=== PATIENT | male | born 1955 | race Caucasian/White ===

== ENCOUNTER 2024-08-21 10:57 | Outpatient (CLI) | payer MEDICARE, SELFPAY ==
--- NOTE | ~2024-08-21 | XR_ITS ---
XR abdomen/kub 1V 08/21/2024 11:24 Indication: Kidney stone Procedure: KUB Comparison: No prior studies for comparison. Findings: Bowel gas pattern is nonobstructive. There is a total hip arthroplasty on the left. Mild kayli mbar spondylosis. Moderate colonic fecal loading. There are pelvic phleboliths. No definite renal sto milagros are seen. Lung bases are unremarkable. Impression: 1: No acute abdominal abnormality. Reviewed, dictated and finalized at location A. Impression: 1: No acute abdominal abnormality.
--- NOTE | ~2024-08-21 | CT_ITS ---
CLINICAL INDICATION: Left ureteral stone COMPARISON: Plain film evaluation of the abdomen, performed on the same day TECHNIQUE: Multiple contiguous axial images of the abdomen and pelvis were performed without the admi nistration of intravenous contrast The dose-length product (DLP) was 951.03 mGy-cm. Automated exposure control and iterative reconstruction technique were employed. FINDINGS/OBSERVATIONS: Visualized lower thorax: The bilateral lung bases are clear. The heart is of normal size, without pericardial effusion. Liver: The liver demonstrates homogeneous attenuation and is not enlarged. Gallbladder and biliary system: The gallbladder is only minimally distended, and otherwise unremarkable. Pancreas: Limited evaluation of the pancreas secondary to the lack of intravenous contrast. Spleen: The spleen demonstrates homogeneous attenuation and is not enlarged. Kidneys: Global enlargement of the left kidney with moderate hydroureteronephrosis secondary to multiple calcu li in the proximal left ureter, the largest measuring 7 mm. Punctate calcification within the lower pole of the left kidney, nonobstructing. The right kidney is unremarkable. Adrenal glands: Unremarkable. Gastrointestinal tract: Colonic diverticulosis without surrounding inflammatory change. Appendix: The appendix is not definitively visualized. However, no pericecal inflammatory change is identified suggest the presence of acute appendicitis. Vasculature: Calcified atherosclerotic disease. Lymph nodes: Limited evaluation without intravenous contrast Pelvic structures: The bladder is decompressed, limiting its evaluation. The prostate gland is not well visualized. Body wall and musculoskeletal: Small fat-containing umbilical hernia. Age-appropriate degenerative disease within the lumbosacral spine. IMPRESSION: Moderate left-sided hydroureteronephrosis secondary to multiple calcified stones within the proximal left ureter, the largest measuring 7 mm Reviewed, dictated and finalized at location A. IMPRESSION: Moderate left-sided hydroureteronephrosis secondary to multiple calcified stone s within the proximal left ureter, the largest measuring 7 mm
--- OUTSIDE RECORDS SUMMARY | 2024-08-21 12:08 | XMS_ITS | Encounter Summary ---
Author Organization [facility] Address [address] [place] [address] Phone Care Team Providers Care Rate Marker Name Role Phone Mamie Galeano MD Primary Care Provider [phone] Encounter Details Date Type Department Care Team (Late st Contact Info) Description 07/26/2024 Results Follow-Up [facility] Endocrinology Metabolism and Lipid [address] [facility] 2nd [address] [place] [address] DO [address] [facility] [address] [place], [place] [id number] Social History Tobacco Use Types Packs/Day Years Used Date Smoking Tobacco: Never Passive Smoke Exposure: Never Smokeless Tobacco: Never Alcohol Use Standard Drinks/Week Comments Yes 0 (1 standard drink = 0.6 oz pur e alcohol) AUDIT-C Answer Date Recorded Q1: How often do you have a drink containing alc ohol? 2-4 times a month 08/05/2021 Q2: How many drinks containi ng alcohol do you have on a typical day when you are drinking? 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
--- OUTSIDE RECORDS SUMMARY | 2024-08-21 12:08 | XMS_ITS | Encounter Summary ---
Author Organization [facility] Address [address] [place] [address] Care Team Providers Care Hammer Operator Name Role Phone Mamie Galeano MD Primary Care Provider [phone] Buffy Menon APRN, SPEECH LANGUAGE PATHOLOGIST PRN-C Unavailable [phone] Encounter Details Date Type Department Care Team (Late st Contact Info) Description 09/28/2018 Abstract [facility]FL CONVERSION [address] [place] [address] , Generic Conversion, Social History Tobacco Use Types Packs/Day Years Used Date Smoking Tobacco: Never Smokeless Tobacco: Never Alcohol Use Standard Drinks/Week Comments Yes 1.7 (1 standard drink = 0.6 oz [address] alcohol) occasionally Sex and Gender Information Value Date Recorded Sex Assigned at Male 08/16/2024 6:37 PM CDT 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
--- OUTSIDE RECORDS SUMMARY | 2024-08-21 12:08 | XMS_ITS | Clinical Summary ---
Author Organization [facility] Address [address] [place] [address] Care Team Providers Care Supervisor Volunteer Services Name Role Phone Mamie Galeano MD Primary Care Provider [phone] Buffy Menon APRN [employer] Unavailable Allergies Active Allergy Reactions Criticality Noted Date Comments Penicillins Rash Low 05/31/2017 Medications metoprolol succinate 50 MG 24 hr tablet Take 2 tablets (100 mg total) by mouth daily. Active metFORMIN 1000 MG tablet Take 1,000 mg by mouth 2 (two) times daily with meals. Active multivitamin tablet Take 1 tablet by mouth daily. Active Fish Oil 1000 MG Cap Active amlodipine 10 MG tablet Take 1 tablet by mouth daily. 0 8 Active lisinopril 20 MG tablet Take 2 tablets (40 mg total) by mouth daily. 0 8 Active rosuvastatin 20 MG tablet Take 40 mg by mouth daily. 3 8 Active aspirin 81 MG chewable tablet Chew 1 tablet (81 mg total) by mouth daily. 90 tablet 3 8 Active chlorthalidone 25 MG tablet Take 1 tablet (25 mg total) by mouth daily. 30 tablet 11 8 Active fenofibric acid delayed release (TRILIPIX) 135 MG CAPSULE DELAYED RELEASE Take 1 tablet (135 mg total) by mouth daily. Active hydroCHLOROthiazide (HYDRODIURIL) 25 MG tablet Take 1 tablet (25 mg total) by mouth daily. 5 08/05/19 26 Active semaglutide (OZEMPIC) 2 mg/dose injection (PEN) Inject 2 mg into the skin. 5 Active magnesium oxide (MAG-OX) 250 MG tablet Take 1 tablet (250 mg total) by mouth daily. Active vitamin B-12 (CYANOCOBALAMIN) (CYANOCOBALAMIN) 1000 mcg tablet Take 1 tablet (1,000 mcg total) by mouth daily. Active Calcium-Phosphorus- Vitamin D (CITRACAL +D3) 250-107-500 MG-MG-UNIT Chew Tab Active aspirin 81 MG chewable tablet Chew 1 tablet (81 mg total) by mouth daily. Active ezetimibe (ZETIA) 10 MG tablet Take 1 tablet (10 mg total) by mouth daily. Active ondansetron (ZOFRAN) 4 MG tabletIndications:H yperlipidemia, unspecified hyperlipidemia type,Primary hypertension Take 1 tablet (4 mg total) by mouth every 8 (eight) hours as needed for Nausea. 20 tablet 5 Active tamsulosin (FLOMAX) 0.4 MG Cap Take 1 capsule (0.4 mg total) by mouth daily. 30 capsule 5 Active ketorolac (TORADOL) 10 MG tabletIndications:H yperlipidemia, unspecified hyperlipidemia type,Primary hypertension Take 1 tablet (10 mg total) by mouth 3 (three) times daily for 3 days. 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 ([facility]) 10/05/2017 Hyperlipidemia Hypertension Type II diabetes mellitus ([facility]) Encounters Date Type Department Care Team Description 08/16/2024 6:26 PM CDT - 08/16/2024 9:02 PM CDT [facility] [address] [place] [address] Tony Cook, DO Back Pain Discharge Disposition: Home or Self Care (Routine Discharge) 08/16/2024 Travel from Last 3 Months Family History Medical History Relation Comments Heart Disease Father Kidney Disease Father Cancer Mother Relation Status Comments Brother 1 Alive Brother 2 Alive Brother 3 Alive Father Mother Sister Alive Social History Tobacco Use Types Packs/Day Years Used Date Smoking Tobacco: Never Smokeless Tobacco: Never Alcohol Use Standard Drinks/Week Comments Yes 1.7 (1 standard drink = 0.6 oz p ure alcohol) occasionally Sex and Gender Information Value Date Recorded Sex Assigned at Male 08/16/2024 6:37 PM CDT 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 Gender Identity Not on file Sexual Orientation Not on file Last Filed Vital Signs Vital Sign Reading Time Taken Comments Blood Pressure 144/79 08/16/2024 6:32 PM CDT Pulse 81 08/16/2024 6:32 PM CDT Temperature 36.4 C (97.5 F) 08/16/2024 6:32 PM CDT Respiratory Rate 20 08/16/2024 6:32 PM CDT Oxygen Saturation 91% 08/16/2024 8:30 PM CDT Inhaled Oxygen Concentration - - Weight 115.2 kg (254 lb) 08/16/2024 6:32 PM CDT Height 182.9 cm (6') 08/16/2024 6:32 PM CDT Body Mass Index 34.45 08/16/2024 6:32 PM CDT Plan of Treatment Health Maintenance Due Date Last Done Comments Colorectal Cancer Screening Colonoscopy (10 Years) 1955 Kidney Health Evaluation 1955 Diabetes: Retinopathy Eye Exam 11/18/1973 Hepatitis C 11/18/1973 Pneumococcal Vaccine: 50+ Years (1 of 2 - PCV) 11/18/1974 DTaP, Tdap and Td Vaccines (1 - Tdap) 09/10/1992 09/09/1992 Zoster Vaccines (1 of 2) 11/18/2005 Lipid Panel 05/15/2018 05/15/2017 Annual Medicare Wellness Visit 11/18/2020 COVID-19 Vaccine ( season) 2023 02/23/2021, 08/09/2020, 06/30/2020 Hemoglobin A1C 04/05/2024 10/05/2023, 09/22, 10/06/2017, Additional history exists RSV Immunization or 60+ Years (1 - 1-dose 75+ series) 11/18/2030 Meningococcal B Vaccine Aged Out No l onger eligible based on patient's age to complete this topic Meningococcal Vaccine Aged Out No rosie cosme eligible based on patient's age to complete this topic RSV Immunizations Under 20 Months Aged Out No longer eligible based on patient's age to complete this topic Procedures Procedure Name Priority Date/Time Associated Diagnosis Comments CT ABD+PEL KIDNEY STONE STAT 08/16/2024 7:40 PM CDT HC URINALYSIS AUTO W/MICRO STAT 08/16/2024 7:25 PM CDT COMPREHENSIVE METABOLIC PANEL STAT 08/16/2024 7:14 PM CDT CBC W/DIFF AUTOMATED STAT 08/16/2024 7:14 PM CDT HEMOGLOBIN, GLYCOSYLATED Routine 10/06/2017 7:29 AM CDT LIPID PANEL (OUTSIDE LAB) Routine 05/15/2017 from Last 3 Months or Most Recently Relevant to Health Maintenance Results * CT ABD+PEL KIDNEY STONE (08/16/2024 7:40 PM CDT) Anatomical Region Laterality Modality Abdomen Computed Tomogra phy 08/16/2024 7:48 PM CDT Impressions 08/16/2024 8:37 PM CDT IMPRESSION: 1. There is a 6 mm obstructing stone within the proximal left ureter just beyond the UPJ with mild associated left hydronephrosis. 2. Additional nonobstructing left renal calculi, the largest measuring up to 6 mm. The attending radiologist has reviewed the image(s) and agrees with the content of this report. Ordered By: KADE HOLLOWAY Interpreted By: Jacqueline Fierro DO, 08/16/2024 7:48 PM Narrative 08/16/2024 8:37 PM CDT [address] [place] [address] EXAMINATION: CT ABD+PEL KIDNEY STONE DATE: 08/16/2024 7:40 PM HISTORY: Left flank pain and vomiting COMPARISON: None TECHNIQUE: Computed tomography of the abdomen and pelvis was performed without administration of IV contrast according to routine protocol. A dose lowering technique was used for this procedure, which may include, but is not limited to, dose reduction technique, automated exposure control, and/or the use of iterative reconstruction, in accordance with ALARA (As Low As Reasonably Achievable)/Image Gently principle. FINDINGS: Chest: Bibasilar dependent atelectasis. Atherosclerotic calcifications within the visualized coronary vessels. Old granulomatous disease. Hepatobiliary system: The liver is normal in size and contour. No biliary duct dilatation is identified. The gallbladder is unremarkable. Pancreas and adrenal glands: The pancreas is normal. The adrenal glands are normal. Genitourinary tract: Bilateral atrophy of the kidneys. There is a 6 mm obstructing calculus within the left ureter slightly distal to the UPJ with mild associated hydronephrosis. Multiple additional nonobstructive left renal calculi, the largest measuring up to 6 mm posteriorly. No right-sided renal calculi. Tiny hyperdensity along the superior right kidney as well as an exophytic hyperdensity along the left kidney likely represent proteinaceous or hemorrhagic cysts. The urinary bladder is incompletely distended. No bladder calculi are visualized. Bilateral fat-containing inguinal hernias. Gastrointestinal tract: No bowel dilatation or bowel wall thickening is identified. The appendix is normal. No ascites or free intraperitoneal air is present. Small fat-containing umbilical hernia. Vasculature: The abdominal aorta is normal in course and caliber. There are atherosclerotic calcifications of the aorta and its branches. Lymphatics: The spleen is normal in size, with small splenules visualized. Granulomatous calcifications in the spleen. No retroperitoneal, mesenteric, iliac, or inguinal lymphadenopathy is identified. Bones and soft tissues: Degenerative changes within the thoracolumbar spine which may contribute to the degree of canal stenosis within the lower lumbar spine. Left hip arthroplasty. Streak artifact from a left hip arthroplasty degrades visualization of portions of the pelvis. Lumbarization of S1 with formation of an intervertebral disc. Mild retrolisthesis of L2 on L3. Severe neural foraminal narrowing at L5-S1 bilaterally but greatest on the left. Procedure Note Amita Lane MD - 08/16/2024 [place] [id number] [place] [address] EXAMINATION: CT ABD+PEL KIDNEY STONE DATE: 08/16/2024 7:40 PM HISTORY: Left flank pain and vomiting COMPARISON: None TECHNIQUE: Computed tomography of the abdomen and pelvis was performed withoutadministration of IV contrast according to routine protocol. A doselowering technique was used for this procedure, which may include, but isnot limited to, dose reduction technique, automated exposure control,and/or the use of iterative reconstruction, in accordance with ALARA (AsLow As Reasonably Achievable)/Image Gently principle. FINDINGS: Chest: Bibasilar dependent atelectasis. Atherosclerotic calcificationswithin the visualized coronary vessels. Old granulomatous disease. Hepatobiliary system: The liver is normal in size and contour. Nobiliary duct dilatation is identified. The gallbladder isunremarkable. Pancreas and adrenal glands: The pancreas is normal. The adrenal glandsare normal. Genitourinary tract: Bilateral atrophy of the kidneys. There is a 6 mmobstructing calculus within the left ureter slightly distal to the UPJwith mild associated hydronephrosis. Multiple additional nonobstructiveleft renal calculi, the largest measuring up to 6 mm posteriorly. Noright-sided renal calculi. Tiny hyperdensity along the superior rightkidney as well as an exophytic hyperdensity along the left kidney likelyrepresent proteinaceous or hemorrhagic cysts. The urinary bladder isincompletely distended. No bladder calculi are visualized. Bilateralfat- containing inguinal hernias. Gastrointestinal tract: No bowel dilatation or bowel wall thickening isidentified. The appendix is normal. No ascites or free intraperitonealair is present. Small fat-containing umbilical hernia. Vasculature: The abdominal aorta is normal in course and caliber. Thereare atherosclerotic calcifications of the aorta and its branches. Lymphatics: The spleen is normal in size, with small splenulesvisualized. Granulomatous calcifications in the spleen. Noretroperitoneal, mesenteric, iliac, or inguinal lymphadenopathy isidentified. Bones and soft tissues: Degenerative changes within the thoracolumbarspine which may contribute to the degree of canal stenosis within thelower lumbar spine. Left hip arthroplasty. Streak artifact from a lefthip arthroplasty degrades visualization of portions of the pelvis.Lumbarization of S1 with formation of an intervertebral disc. Mildretrolisthesis of L2 on L3. Severe neural foraminal narrowing at L5- X5lepnzbqclko but greatest on the left. IMPRESSION: 1. There is a 6 mm obstructing stone within the proximal left ureter justbeyond the UPJ with mild associated left hydronephrosis. 2. Additional nonobstructing left renal calculi, the largest measuring upto 6 mm. The attending radiologist has reviewed the image(s) and agrees with thecontent of this report. Ordered By: KADE HOLLOWAY Interpreted By: Jacqueline Fierro DO, 08/16/2024 7:48 PM Kade Holloway MD CT Final Result * (ABNORMAL) URINALYSIS (08/16/2024 7:25 PM CDT) COLOR (U) YELLOW 08/16/2024 7:46 PM CDT [facility] TRANSPARENCY CLEAR 08/16/2024 7:46 PM CDT [facility] SPECIFIC GRAVITY (U) 1.030(H) 1.000 - 1.025 08/16/2024 7:46 PM CDT [facility] Comment:EQUAL TO OR GREATER THAN U PH 6.0 5.0 - 8.0 08/16/2024 7:46 PM CDT [facility] LEUKOCYTES (U) NEGATIVE NEGATIVE 08/16/2024 7:46 PM CDT [facility] NITRITES NEGATIVE NEGATIVE 08/16/2024 7:46 PM CDT [facility] PROTEIN RANDOM (U) NEGATIVE NEGATIVE 08/16/2024 7:46 PM CDT [facility] GLUCOSE (U) NEGATIVE NEGATIVE 08/16/2024 7:46 PM CDT [facility] KETONES MG/DL (U) NEGATIVE NEGATIVE 08/16/2024 7:46 PM CDT [facility] UROBILINOGEN 0.2 <1.0 EU/DL 08/16/2024 7:46 PM CDT [facility] BILIRUBIN (U) NEGATIVE NEGATIVE 08/16/2024 7:46 PM CDT [facility] BLOOD (U) TRACE(A) NEGATIVE 08/16/2024 7:46 PM CDT [facility] WBC/HPF 0-5 0 - 5 /HPF 08/16/2024 7:46 PM CDT [facility] RBC/HPF 0-5 0 - 5 /HPF 08/16/2024 7:46 PM CDT [facility] EPI/LPF 0-5 /LPF 08/16/2024 7:46 PM CDT [facility] BACTERIA (U) 2+ /HPF 08/16/2024 7:46 PM CDT [facility] OTHER CASTS (U) HYALINE /LPF 7:46 PM CDT [facility] Comment:0-5 URINE SPECIMEN OBTAINED BY CLEAN CATCH PROCEDURE / Unknown 08/16/2024 7:25 PM CDT us Tony Cook DO URINE ORDERABLES Latanya jennifer Result [facility] [address] [place] [address], * (ABNORMAL) COMPREHENSIVE METABOLIC PANEL (08/16/2024 7:14 PM CDT) SODIUM S/P/B 138 136 - 145 MMOL/L 08/16/2024 7:48 PM CDT [facility] POTASSIUM S/P/B 3.5 3.5 - 5.1 MMOL/L 08/16/2024 7:48 PM CDT [facility] Comment:MILD HEMOLYSIS, RESU LT MAY BE AFFECTED. CHLORIDE S/P/B 99 98 - 107 MMOL/L 08/16/2024 7:48 PM CDT [facility] CO2 28.6 21.0 - 32.0 MMOL/L 08/16/2024 7:48 PM CDT [facility] GLUCOSE 139(H) 70 - 99 MG/DL 08/16/2024 7:48 PM CDT [facility] Comment: FASTING GLUCOSE 100 TO 125 MG/DL IS CONSISTENT WITH IMPAIRED FASTING GLUCOSE. FASTING GLUCOSE >125 MG/DL IS CONSISTENT WITH DIABETES. RANDOM GLUCOSE >200 MG/DL WITH HYPERGLYCEMIC SYMPTOMS IS CONSISTENT WITH DIABETES. PER ADA GUIDELINES BUN 19 6 - 24 MG/DL 08/16/2024 7:48 PM CDT [facility] CREATININE S/P/B 1.36(H) 0.70 - 1.30 MG/DL 08/16/2024 7:48 PM CDT [facility] CALCIUM S/P/B 9.7 8.4 - 10.5 MG/DL 08/16/2024 7:48 PM CDT [facility] BILIRUBIN TOTAL S/P/B 0.8 0.2 - 1.0 MG/DL 08/16/2024 7:48 PM CDT [facility] Comment: THIS ASSAY IS NOT RECOMMENDED FOR PATIENTS UNDERGOING TREATMENT WITH ELTROMBOPAG DUE TO THE POTENTIAL FOR FALSELY ELEVATED RESULTS. ALKALINE PHOSPHATASE S/P/B 44(L) 45 - 115 U/L 08/16/2024 7:48 PM T [facility] AST 38(H) 15 - 37 U/L 08/16/2024 7:48 PM CDT [facility] Comment:MILD HEMOLYSIS, RESU LT MAY BE AFFECTED. ALT 31 16 - 63 U/L 08/16/2024 7:48 PM CDT [facility] TOTAL PROTEIN S/P/B 7.8 6.4 - 8.2 G/DL 08/16/2024 7:48 PM T [facility] ALBUMIN S/P/B 3.9 3.4 - 5.0 G/DL 08/16/2024 7:48 PM T [facility] ANION GAP 10.4 5.0 - 15.0 MMOL/L 08/16/2024 7:48 PM T [facility] OSMOLALITY (CALC) 291 MOSM/KG 025 7:48 PM T [facility] Comment:REFERENCE RANGE NOT ESTABLISHED GFR ESTIMATE 57(L) >89 ML/MIN/1. 73 M2 08/16/2024 7:48 PM T [facility] GFR NOTES GFR REFERENCE S: 08/16/2024 7:48 PM T [facility] Comment: THE ESTIMATED GFR IS CALCULATED USING THE 2020 CKD-EPI EQUATION. THE FOLLOWING CATEGORIES FOR GRADING RENAL FUNCTION ARE RECOMMENDED BY THE INTERNATIONAL SOCIETY OF NEPHROLOGY (KDIGO 2012 CLINICAL PRACTICE GUIDELINE). G1,NORMAL OR HIGH: >89 ml/min/1.73 m2 G2,MILDLY DECREASED: 60-89 ml/min/1.73 m2 G3A,MILDLY TO MODERATELY DECREASED: 45-59 ml/min/1.73 m2 G3B,MODERATELY TO SEVERELY DECREASED: 30-44 ml/min/1.73 m2 G4,SEVERELY DECREASED: 15-29 ml/min/1.73 m2 G5,KIDNEY FAILURE: <15 ml/min/1.73 m2 08/16/2024 7:14 PM CDT us Tony Cook DO LABORATORY Final Result [facility] [address] [place] [address], * (ABNORMAL) CBC W/DIFF AUTOMATED (08/16/2024 7:14 PM CDT) WBC 7.17 4.00 - 10.80 x10'3/uL 08/16/2024 7:24 PM CDT [facility] RBC 4.95 4.50 - 6.10 x10'6/uL 08/16/2024 7:24 PM CDT [facility] HGB 16.5 13.0 - 18.0 G/DL 08/16/2024 7:24 PM CDT [facility] HCT 47.1 37.0 - 52.0 % 08/16/2024 7:24 PM CDT [facility] MCV 95.2 78.0 - 100.0 FL 08/16/2024 7:24 PM CDT [facility] MCH 33.3(H) 27.0 - 31.0 PG 08/16/2024 7:24 PM CDT [facility] MCHC 35.0 33.0 - 36.0 G/DL 08/16/2024 7:24 PM CDT [facility] RDW 12.5 11.5 - 14.5 % 08/16/2024 7:24 PM CDT [facility] PLT 245 150 - 350 x10'3/uL 08/16/2024 7:24 PM CDT [facility] MPV 10.7(H) 7.4 - 10.4 FL 08/16/2024 7:24 PM CDT [facility] CBC COMMENT NORMAL REFERENCE RANGE NOT ESTABLISHED FOR THE PROPORTIONAL LEUKOCYTE DIFFERENTIAL. 08/16/2024 7:24 PM CDT [facility] NEUTROPHILS % 70.9 % 08/16/2024 7:24 PM CDT [facility] LYMPHOCYTES % 18.7 % 08/16/2024 7:24 PM CDT [facility] MONOCYTES % 8.5 % 08/16/2024 7:24 PM CDT [facility] EOSINOPHILS % 1.0 % 08/16/2024 7:24 PM CDT [facility] BASOPHILS % 0.6 % 08/16/2024 7:24 PM CDT [facility] IMMATURE GRANS % 0.3 % 08/17/19 7:24 PM CDT [facility] NRBC % 0.0 % 08/16/2024 7:24 PM CDT [facility] ABS. NEUTROPHILS 5.09 1.60 - 8.30 x10'3/uL 08/16/2024 7:24 PM CDT [facility] ABS. LYMPHOCYTES 1.34 0.80 - 4.70 x10'3/uL 08/16/2024 7:24 PM CDT [facility] ABS. MONOCYTES 0.61 0.00 - 1.50 x10'3/uL 08/16/2024 7:24 PM CDT [facility] ABS. EOSINOPHILS 0.07 0.00 - 0.40 x10'3/uL 08/16/2024 7:24 PM CDT [facility] ABS. BASOPHILS 0.04 0.00 - 0.20 x10'3/uL 08/16/2024 7:24 PM CDT [facility] ABS. IMMATURE GRANULOCYTES 0.02 0.00 - 0.03 x10'3/uL 08/16/2024 7:24 PM CDT [facility] ABS. NUCLEATED RBC'S 0.00 0.00 - 0.01 x10'3/uL 08/16/2024 7:24 PM CDT [facility] 08/16/2024 7:14 PM CDT oTny Coko DO LABORATORY Final Result [facility] [address] [place] [address], * (ABNORMAL) HEMOGLOBIN, GLYCOSYLATED (10/06/2017 7:29 AM CDT) HGB A1C 6.1(H) 4.5 - 6.0 % 10/06/2017 8:55 AM CDT [facility] ESTIMATED AVG GLUCOSE 128 MG/DL 10/06/2017 8:55 AM CDT [facility] 10/06/2017 7:29 AM CDT Bart Escobedo MD LABORATORY Final Result [facility] [address] [place] [address], [place] [phone] [id number] * LIPID PANEL (OUTSIDE LAB) (05/15/2017) CHOLESTEROL 202 TRIGLYCERIDES 238 HDL 39 LDL (CALCULATED) 115 VLDL CALCULATION 48 CHOL/HDL RATIO 5.2 05/15/2017 us Doc [facility] LAB-OUTSIDE/ABSTRACTED Final Result from Last 3 Months or Most Recently Relevant to Health Maintenance Insurance [employer] Advance Directives Documents on File Type Date Recorded 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
--- OUTSIDE RECORDS SUMMARY | 2024-08-21 12:09 | XMS_ITS | Referral Summary ---
Author Organization [facility] Address [address] [place] [address] Care Team Providers Care Car Cleaner Name Role Phone Mamie Galeano MD Primary Care Provider Encounters Date Type Department Care Team Description 08/04/2024 Orders Only [facility] Endocrinology Metabolism and Lipid [address] [facility] [address] [place] [address] [place] [address] DO Hypercalcemia (Primary Dx) 07/26/2024 Results Follow-Up [facility] Endocrinology Metabolism and Lipid [address] [facility] [address] [place] [address] DO 06/04/2024 Orders Only [facility] Endocrinology Metabolism and Lipid [address] [facility] 13th [place] [address] [place] [address] DO Hypercalciuria (Primary Dx) from Last 3 Months Allergies Active Allergy Reactions Criticality Noted Date Comments Penicillins Rash Medium 10/30/2017 Medications aspirin 81 mg tablet Take 1 tablet (81 mg total) by mouth daily Active amLODIPine (NORVASC) 10 mg tablet TK 1 T PO D 1 8 Active fenofibrate choline (TRILIPIX) 135 mg capsule TK ONE C PO D FOR HYPERLIPIDEMIA 2 8 Active lisinopril (PRINIVIL,ZEST RIL) 40 mg tablet TK 1 T PO D 1 8 Active metFORMIN (GLUCOPHAGE) 1,000 mg tablet 2 (two) times a day 1 8 Active metoprolol XL (TOPROL-XL) 100 mg 24 hr tablet TK 1 T PO D 1 8 Active OMEGA 7-NUK-NBF-FISH OIL ORAL Take 2,400 capsules by 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 feed mill 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 before breakfast Active rosuvastatin (CRESTOR) 40 mg tablet Take 1 tablet (40 mg total) by mouth daily 30 tablet 6 2 Active MAGNESIUM GLYCINATE ORAL Take 225 mg by mouth 2 (two) times a day Active CHOLECALCIFERO L, VITAMIN D3, ORAL Take 5,000 Units by mouth daily Taking 50mcg daily Active calcium carbonate-ann min D3 (CALTRATE 600 + D) 1500 mg (600 mg elemental) -400 units per tablet Take 1 tablet by mouth every other day Active ezetimibe (ZETIA) 10 mg tablet TAKE 1 TABLET(10 MG) BY MOUTH DAILY 90 tablet 1 4 Active semaglutide (OZEMPIC) 2 mg/dose (8 mg/3 mL) pen injector injectionIndic ations:Type 2 diabetes mellitus without complication, without long-term current use of insulin (HCC) Inject 0.75 mL (2 mg total) under the skin once a week 3 mL 6 5 Active hydroCHLOROthi azide (HYDRODIURIL) 25 mg tablet Take 1 tablet (25 mg total) by mouth daily 90 tablet 1 5 026 Active Active Problems Problem Noted Date Diagnosed Date Type II diabetes mellitus 05/13/2024 Hypertension 05/13/2024 Hyperlipidemia 05/13/2024 Subarachnoid hemorrhage 10/30/2017 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 10/05/2017 Social History Tobacco Use Types Packs/Day Years [...] on file Legal Sex Male 11:32 AM ATOMIC WELDER Gender Identity Male 10/16/2017 12:37 PM CDT Sexual Orientation Straight 09/05/2021 9: 03 AM CDT Last Filed Vital Signs Vital Sign Reading Time Taken Comments Blood Pressure 138/85 05/14/2024 8:56 AM ATOMIC WELDER Pulse 70 05/14/2024 8:56 AM ATOMIC WELDER Temperature 36.4 C (97.6 F) 05/14/2024 8:56 AM ATOMIC WELDER Respiratory Rate 15 11/21/2017 11:0 0 AM CDT Oxygen Saturation 97% 05/14/2024 8:56 AM ATOMIC WELDER Inhaled Oxygen Concentration - - Weight 115.3 kg (254 lb 1.6 oz) 05/14/2024 8:56 AM ATOMIC WELDER Height 182.9 cm (6') 05/14/2024 8:56 AM ATOMIC WELDER Body Mass Index 34.46 05/14/2024 8:56 AM ATOMIC WELDER Plan of Treatment Not on file Procedures Procedure Name Priority Date/Time Associated Diagnosis Comments SODIUM, URINE, 24 HOUR Routine 10:03 AM CDT Hypercalciuria CALCIUM, URINE, 24 HOUR Routine 07/15/2024 10:03 AM CDT Hypercalciuria CALCIUM, URINE, 24 HOUR Routine 05/27/2024 8:34 AM ATOMIC WELDER Hypercalcemia POCT HEMOGLOBIN A1C Routine 05/14/2024 9 :08 AM ATOMIC WELDER Type 2 diabetes mellitus without complication, without long-term current use of insulin (HCC) COMPREHENSIVE METABOLIC PANEL Routine 04/21/2024 8:47 AM ATOMIC WELDER Type 2 diabetes mellitus without complication, without long-term current use of insulin (HCC) LIPID PANEL Routine 04/21/2024 8:47 AM ATOMIC WELDER Type 2 diabetes mellitus without complication, without long-term current use of insulin ([facility]) ALBUMIN CREATININE RATIO, URINE Routine 04/21/2024 8:47 AM ATOMIC WELDER Type 2 diabetes mellitus without complication, without long-term current use of insulin (HCC) HEPATITIS C ANTIBODY Routine 11/08/2021 8:29 AM CDT Abnormal liver function from Last 3 Months or Most Recently Relevant to Health Maintenance Results * (ABNORMAL) Calcium, urine, 24 hour (07/15/2024 10:03 AM CDT) Calcium, 24 hour ur 435(H) mg/24 h [facility] Comment: Reference Range 55-300 Low calcium diet 55-200 URINE VOLUME: 2650/24 Urine 07/15/2024 10:0 3 AM CDT 07/15/2024 3:59 PM CDT Whitney Ramirezme DO LAB URINE ORDERABLES Fi nal Result Performing Organization Address [facility] Co de Phone Number [facility] [address] [place] [address] * (ABNORMAL) Sodium, urine, 24 hour (07/15/2024 10:03 AM CDT) Sodium/creat ratio 209(H) 30 - 180 mmol/g creat [facility] Sodium, 24 hour ur 299 52 - 380 mmol/24 h [facility] Creatinine, 24 hour ur 1.43 0.50 - 2.15 g/24 h [facility] Urine 07/15/2024 10:0 3 AM CDT 07/15/2024 3:59 PM CDT Whitney Ambreen Ariana DO LAB URINE ORDERABLES Fi nal Result Performing Organization Address [facility] Co de Phone Number [facility] [address] [place] [address] * (ABNORMAL) Calcium, urine, 24 hour (05/27/2024 8:34 AM ATOMIC WELDER) Calcium, 24 hour ur 377(H) mg/24 h [facility] Comment: Reference Range 55-300 Low calcium diet 55-200 URINE VOLUME: 2600/24 Urine 05/27/2024 8:34 AM ATOMIC WELDER 05/27/2024 6:33 PM ATOMIC WELDER Whitney Stevensharme DO LAB URINE ORDERABLES Fi nal Result [facility] [address] [place] [address] * POCT hemoglobin A1c (05/14/2024 9:08 AM ATOMIC WELDER) Hemoglobin A1C, POC 6.7 4.0 - 5.6 % Blood 05/14/2024 9:08 AM ATOMIC WELDER Mary Mccloud [employer]RARIAN POINT OF CARE TEST ORDERAB LES Final Result * Albumin Creatinine Ratio, Urine (04/21/2024 8:47 AM ATOMIC WELDER) Creatinine, ur 61 20 - 320 mg/dL [facility] Microalbumin, ur 0.4 See Note: mg/dL [facility] Comment: Reference Range: Reference Range Not established Microalbumin/creat ratio 7 <30 mg/g creat [facility] Comment: The ADA defines abnormalities in albumin excretion as follows: Albuminuria Category Result (mg/g creatinine) Normal to Mildly increased <30 Moderately increased 30-299 Severely increased > OR = 300 The ADA recommends that at least two of three specimens collected within a 3-6 month period be abnormal before considering a patient to be within a diagnostic category. Urine 04/21/2024 8:47 AM ATOMIC WELDER 04/21/2024 8:48 AM ATOMIC WELDER Narrative [facility] - 04/22/2024 8:58 AM ATOMIC WELDER FASTING:YES FASTING: YES Whitneyfrancois Browne Ariana DO LAB URINE ORDERABLES Fi nal Result [facility] [address] [place] [address] * (ABNORMAL) Lipid panel (04/21/2024 8:47 AM ATOMIC WELDER) Cholesterol 160 <200 mg/dL [facility] HDL 42 > OR = 40 mg/dL [facility] Triglycerides 166(H) <150 mg/dL [facility] LDL 92 mg/dL (calc) [facility] Comment: Reference range: <100 Desirable range <100 mg/dL for primary prevention; <70 mg/dL for patients with CHD or diabetic patients with > or = 2 CHD risk factors. LDL-C is now calculated using the Noe calculation, which is a validated novel method providing better accuracy than the Friedewald equation in the estimation of LDL-C. Sharad SS et al. JAMI. 2013;310(19): 4810-6755 (http://education.Mamaya/faq/JSW759) Chol/HDL ratio 3.8 <5.0 (calc) [facility] Non-HDL, (LDL+VLDL) 118 <130 mg/dL (calc) [facility] Comment: For patients with diabetes plus 1 major ASCVD risk factor, treating to a non-HDL-C goal of <100 mg/dL (LDL-C of <70 mg/dL) is considered a therapeutic option. Blood 04/21/2024 8:47 AM ATOMIC WELDER 04/21/2024 8:48 AM ATOMIC WELDER Narrative [facility] - 04/22/2024 8:58 AM ATOMIC WELDER FASTING:YES FASTING: YES us Whitney Lane DO LAB BLOOD ORDERABLES Fi nal Result [facility] [address] [place] [address] * (ABNORMAL) Comprehensive metabolic panel (04/21/2024 8:47 AM ATOMIC WELDER) Glucose 139(H) 65 - 99 mg/dL [facility] Comment: Fasting reference interval For someone without known diabetes, a glucose value >125 mg/dL indicates that they may have diabetes and this should be confirmed with a follow-up test. BUN 14 7 - 25 mg/dL [facility] Creatinine 0.88 0.70 - 1.35 mg/dL [facility] eGFR 94 > OR = 60 mL/min/1.7 3m2 [facility] BUN/creat ratio SEE NOTE: 6 - 22 (calc) [facility] Comment: Not Reported: BUN and Creatinine are within reference range. Sodium 139 135 - 146 mmol/L [facility] Potassium, pl 4.1 3.5 - 5.3 mmol/L [facility] Chloride 104 98 - 110 mmol/L [facility] CO2 28 20 - 32 mmol/L [facility] Calcium 9.2 8.6 - 10.3 mg/dL [facility] Protein, sr 6.9 6.1 - 8.1 g/dL [facility] Albumin 4.5 3.6 - 5.1 g/dL [facility] GLOBULIN 2.4 1.9 - 3.7 g/dL (calc) [facility] Alb/glob ratio 1.9 1.0 - 2.5 (calc) [facility] Bilirubin, total 0.9 0.2 - 1.2 mg/dL [facility] Alk phos 37 35 - 144 U/L [facility] AST 19 10 - 35 U/L [facility] ALT (SGPT) 19 9 - 46 U/L [facility] Blood 04/21/2024 8:47 AM ATOMIC WELDER 04/21/2024 8:48 AM ATOMIC WELDER Narrative [facility] - 04/22/2024 8:58 AM ATOMIC WELDER FASTING:YES FASTING: YES us Whitney Lane DO LAB BLOOD ORDERABLES Fi nal Result [facility] [address] [place] [address] * Hepatitis C antibody (11/08/2021 8:29 AM CDT) Hep C Ab NON-REACTI VE NON-REACT SMITHA [facility] SIGNAL TO CUT-OFF 0.00 <1.00 [facility] Comment: HCV antibody was non-reactive. There is no laboratory evidence of HCV infection. In most cases, no further action is required. However, if recent HCV exposure is suspected, a test for HCV RNA (test code 93195) is suggested. For additional information please refer to http://education.Infomous/faq/NHJ29n3 (This link is being provided for informational/ educational purposes only.) Blood specimen (specimen) 11/08/2021 8:29 AM CDT 11/08/2021 8:29 AM CDT Narrative [facility] - 11/12/2021 10:45 PM CDT FASTING:YES FASTING: YES Whitney Lane DO LAB MICROBIOLOGY - GENE RAL ORDERABLES Final Result [facility] [address] [place] [address] from Last 3 Months or Most Recently Relevant to Health Maintenance Insurance [employer] [facility] AETNA MEDICARE [employer] [facility] Advance Directives For more information, please contact: [phone] * Full Code (Latest Code Status on File) Date Activated Date Inactivated Comments 11/21/2017 11:17 AM 11/26/2017 1:19 PM Care Teams Car Cleaner Relationship Specialty Start Date End Date Mamie Galeano MD [address] [place] [address] PCP - General Family Medicine 10/16/17
--- OUTSIDE RECORDS SUMMARY | 2024-08-21 12:09 | XMS_ITS | Clinical Summary ---
Author Organization [facility] Address [address] [place] [address] Care Team Providers Care Home Care Assistant Name Role Phone Mamie Galeano MD Primary Care Provider Allergies Active Allergy Reactions Criticality Noted Date [...] T PO D 1 8 Active OMEGA 8-IIN-BSU-FISH OIL ORAL Take 2,400 capsules by mouth school psychologist before breakfast Active rosuvastatin (CRESTOR) 40 mg [...] with somatosensory or special sensory dysfunction 10/05/2017 Encounters Date Type Department Care Team Description 08/04/2024 Orders Only [facility] Endocrinology Metabolism and Lipid [address] [facility] 13th [place] [address] [place] [address] DO Hypercalcemia (Primary Dx) 07/26/2024 Results Follow-Up [facility] Endocrinology Metabolism and Lipid [address] [facility] 2nd [address] [place] [address] DO 06/04/2024 Orders Only [facility] Endocrinology Metabolism and Lipid [address] 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 Imaging showed possible aneurysm Family History Medical History Relation Name Comments diabetes mellitus Brother 1 No Known Problems Daughter Heart disease Father renal cell carcinoma Father Lung cancer Mother Relation Name Status Comments Brother 1 Alive Brother 2 Alive Brother 3 Alive Daughter Alive Father Mother Sister Alive Social History [...] on file Legal Sex Male 11:32 AM CONVEYOR BELT REPAIRER Gender Identity Male 10/16/2017 12:37 PM CDT Sexual Orientation Straight 09/05/2021 9: 03 AM CDT Obstetrics History Last Filed Vital Signs Vital Sign Reading Time Taken Comments Blood Pressure 138/85 05/14/2024 8:56 AM CONVEYOR BELT REPAIRER Pulse 70 05/14/2024 8:56 AM CONVEYOR BELT REPAIRER Temperature 36.4 C (97.6 F) 05/14/2024 8:56 AM CONVEYOR BELT REPAIRER Respiratory Rate 15 11/21/2017 11:0 0 AM CDT Oxygen Saturation 97% 05/14/2024 8:56 AM CONVEYOR BELT REPAIRER Inhaled Oxygen Concentration - - Weight 115.3 kg (254 lb 1.6 oz) 05/14/2024 8:56 AM CONVEYOR BELT REPAIRER Height 182.9 cm (6') 05/14/2024 8:56 AM CONVEYOR BELT REPAIRER Body Mass Index 34.46 05/14/2024 8:56 AM CONVEYOR BELT REPAIRER Plan of Treatment Health Maintenance Due Date Last Done Comments Colon Cancer Screening-Colonoscopy 1955 Depression Screening 1955 Fall Risk Assessment 1955 Prostate Cancer Screening-PSA 1955 Dilated Eye Exam 1955 Foot Exam 1955 Hepatitis B Screening 11/18/1973 Pneumococcal vaccine 65+ (1 of 2 - PCV) 11/18/1974 DTaP/Tdap/Td Vaccine (1 - Tdap) 09/10/1992 3 Zoster Vaccine (1 of 2) 11/18/2005 Well Visit 65+ 11/18/2020 Covid-19 Vaccine (4 - 2023-2 5 season) 2023 02/23/2021, 08/09/2020, 06/30/2020 Hemoglobin A1C 11/11/2024 05/14/2024, 09/21, 09/26/2022, Additional history exists Influenza Vaccine (Season Ended) 2024 Albumin Creatinine Ratio, Urine 04/21/2025 04/21/2024, 10/05/2023, 11/01/2022, Additional history exists Lipid Panel 04/21/2025 04/21/2024, 04/2022, 11/01/2022, Additional history exists eGFR 04/21/2025 04/21/2024, 04/2022, 11/01/2022, Additional history exists Hepatitis C Screening Completed 11/08/2021 Procedures Procedure Name Priority Date/Time Associated Diagnosis Comments SODIUM, URINE, 24 HOUR Routine 10:03 AM CDT Hypercalciuria CALCIUM, URINE, 24 HOUR Routine 07/15/2024 10:03 AM CDT Hypercalciuria CALCIUM, URINE, 24 HOUR Routine 05/27/2024 8:34 AM CONVEYOR BELT REPAIRER Hypercalcemia POCT HEMOGLOBIN A1C Routine 05/14/2024 9 :08 AM CONVEYOR BELT REPAIRER Type 2 diabetes mellitus without complication, without long-term current use of insulin (HCC) COMPREHENSIVE METABOLIC PANEL Routine 04/21/2024 8:47 AM CONVEYOR BELT REPAIRER Type 2 diabetes mellitus without complication, without long-term current use of insulin (HCC) LIPID PANEL Routine 04/21/2024 8:47 AM CONVEYOR BELT REPAIRER Type 2 diabetes mellitus without complication, without long-term current use of insulin (HCC) ALBUMIN CREATININE RATIO, URINE Routine 04/21/2024 8:47 AM CONVEYOR BELT REPAIRER Type 2 diabetes mellitus without complication, without [...] AM CDT 07/15/2024 3:[address] DO LAB URINE ORDERABLES Fi nal Result Performing Organization Address [facility] de Phone Number [facility] [address] [place] [address] * (ABNORMAL) Sodium, urine, 24 hour (07/15/2024 10:03 AM CDT) Sodium/creat ratio 209(H) 30 - 180 mmol/g creat [facility] Sodium, 24 hour ur 299 52 - 380 mmol/24 h [facility] Creatinine, 24 hour ur 1.43 0.50 - 2.15 g/24 h [facility] Urine 07/15/2024 10:0 3 AM CDT 07/15/2024 3:59 PM CDT Whitney Crook Ariana DO LAB URINE ORDERABLES Fi nal Result Performing Organization Address [facility] de Phone Number [facility] [address] [place] [address] * (ABNORMAL) Calcium, urine, 24 hour (05/27/2024 8:34 AM CONVEYOR BELT REPAIRER) Calcium, 24 hour ur 377(H) mg/24 h [facility] Comment: Reference Range 55-300 Low calcium diet 55-200 URINE VOLUME: 2600/24 Urine 05/27/2024 8:34 AM CONVEYOR BELT REPAIRER 05/27/2024 6:33 PM CONVEYOR BELT REPAIRER Whitney Ambreenluc Lane DO LAB URINE ORDERABLES Fi nal Result Performing Organization Address [facility] Co de Phone Number [facility] [address] [place] [address] * POCT hemoglobin A1c (05/14/2024 9:08 AM CONVEYOR BELT REPAIRER) Hemoglobin A1C, POC 6.7 4.0 - 5.6 % Blood 05/14/2024 9:08 AM CONVEYOR BELT REPAIRER Mary Mccloud NP POINT OF CARE TEST ORDERAB LES Final Result * Albumin Creatinine Ratio, Urine (04/21/2024 8:47 AM CONVEYOR BELT REPAIRER) Creatinine, ur 61 20 - 320 mg/dL [...] a diagnostic category. Urine 04/21/2024 8:47 AM CONVEYOR BELT REPAIRER 04/21/2024 8:48 AM CONVEYOR BELT REPAIRER Narrative [facility] - 04/22/2024 8:58 AM CONVEYOR BELT REPAIRER FASTING:YES FASTING: YES Whitney Lane DO LAB URINE ORDERABLES Fi nal Result Performing Organization Address [facility] Co de Phone Number [facility] [address] [place] [address] * (ABNORMAL) Lipid panel (04/21/2024 8:47 AM CONVEYOR BELT REPAIRER) Cholesterol 160 <200 mg/dL [facility] [...] equation in the estimation of LDL-C. Sharad TANNER et al. JAMI. 2013;310(19): 2130-5272 (http://education.MassBioEd/faq/QYB843) Chol/HDL ratio 3.8 <5.0 (calc) [facility] Non-HDL, (LDL+VLDL) 118 <130 mg/dL (calc) [facility] Comment: For patients with diabetes plus 1 major ASCVD risk factor, treating to a non-HDL-C goal of <100 mg/dL (LDL-C of <70 mg/dL) is considered a therapeutic option. Blood 04/21/2024 8:47 AM CONVEYOR BELT REPAIRER 04/21/2024 8:48 AM CONVEYOR BELT REPAIRER Narrative [facility] - 04/22/2024 8:58 AM CONVEYOR BELT REPAIRER FASTING:YES FASTING: YES us Whitney Lane DO LAB BLOOD ORDERABLES Fi nal Result [facility] [address] [place] [address] * (ABNORMAL) Comprehensive metabolic panel (04/21/2024 8:47 AM CONVEYOR BELT REPAIRER) Pathologist [facility] Glucose 139(H) 65 - 99 mg/dL [facility] [...] [facility] Blood 04/21/2024 8:47 AM CONVEYOR BELT REPAIRER 04/21/2024 8:48 AM CONVEYOR BELT REPAIRER Narrative [facility] - 04/22/2024 8:58 AM CONVEYOR BELT REPAIRER FASTING:YES FASTING: YES us Whitney Lane DO LAB BLOOD ORDERABLES Fi nal Result [facility] [address] [place] [address] * Hepatitis C antibody (11/08/2021 8:29 AM CDT) Hep C Ab NON-REACTI VE NON-REACT SMITHA [facility] SIGNAL TO CUT-OFF 0.00 <1.00 [facility] Comment: HCV antibody was non-reactive. There is no laboratory evidence of HCV infection. In most cases, no further action is required. However, if recent HCV exposure is suspected, a test for HCV RNA (test code 30543) is suggested. For additional information please refer to http://education.BrightArch/faq/CMO87p0 (This link is being provided for informational/ educational purposes only.) Blood specimen (specimen) 11/08/2021 8:29 AM CDT 11/08/2021 8:29 AM CDT Narrative [facility] - 11/12/2021 10:45 PM CDT FASTING:YES FASTING: YES Whitney Lane DO LAB MICROBIOLOGY - GENE RAL ORDERABLES Final Result [facility] [address] [address] [facility] [place] [address] from Last 3 Months or Most Recently Relevant to Health Maintenance Insurance [employer] [facility] Member Subscriber Plan / Payer (Ef fective 2013-Present) Name:Solitario Carey Member ID:[id number] Relation to Subscriber:Self Name:Solitario Carey Subscriber ID:[id number] Payer ID:[id number] Type:[employer] HMO/PPO Address: [address] [place] [address] AETNA MEDICARE [employer] [facility] Member Subscriber Plan / Payer (Ef fective 2017-Present) Name:Solitario Carey Member ID:[id number] Relation to Subscriber:Self Name:SOLITARIO CAREY Subscriber ID:[id number] Payer ID:[id number] Type:[employer] HMO/PPO Address: [facility] [id number] [place] [address] Advance Directives For more information, please contact: [phone] * Full Code (Latest Code Status on File) Date Activated Date Inactivated Comments 11/21/2017 11:17 AM 11/26/2017 1:19 PM Care Teams Home Care Assistant Relationship Specialty Start Date End Date Mamie Galeano MD [address] [place] [address] PCP - General Family Medicine 10/16/17
== END 2024-08-21 10:58 | disposition home or self-care (01) ==
PROVIDERS: Visit Provider Urology
DX: N13.2 Hydronephrosis with renal and ureteral calculous obstruction (principal)
CPT/HCPCS: 74018; 74176

== ENCOUNTER 2024-08-23 09:33 | Outpatient (CLI) | payer MEDICARE, SELFPAY ==
[2024-08-23 10:45] LABS: Anion Gap 11 mmol/L (4-12); Blood Urea Nitrogen 23 mg/dL (7-18); Calcium 9.3 mg/dL (8.5-10.1); Carbon Dioxide 26 mmol/L (21-32); Chloride 102 mmol/L (98-108); Estimated Glomerular Filt Rate 43; Glucose 151 mg/dL (70-99); Osmolality Calculated 294 mOsm/kg (285-295); Potassium 3.9 mmol/L (3.5-5.1); Sodium 139 mmol/L (136-145)
--- OUTSIDE RECORDS SUMMARY | 2024-08-23 16:07 | XMS_ITS | Clinical Summary ---
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) 10/05/2017 Hyperlipidemia Hypertension Type II diabetes mellitus ([facility]) Encounters Date Type Department Care Team Description 08/16/2024 6:26 PM CDT - 08/16/2024 9:02 PM CDT Emergency [place] [address] [place] [address] Tony Cook, DO Back Pain Discharge Disposition: [...] PM CDT Legal Sex Male 1:10 PM RADIO DISC JOCKEY Gender Identity Not on file Sexual Orientation [...] 7:48 PM Narrative 08/16/2024 8:37 PM CDT [address] [place] [address] EXAMINATION: CT ABD+PEL KIDNEY STONE DATE: 08/16/2024 [...] Procedure Note Amita Lane MD - 08/16/2024 [place] [id number] [facility] [place] [address] EXAMINATION: CT ABD+PEL KIDNEY STONE DATE: 08/16/2024 [...] L3. Severe neural foraminal narrowing at L5- [id number] but greatest on the left. IMPRESSION: 1. [...] COLOR (U) YELLOW 08/16/2024 7:46 PM CDT [facility] TRANSPARENCY CLEAR 08/16/2024 7:46 PM CDT [facility] SPECIFIC GRAVITY (U) 1.030(H) 1.000 - 1.025 08/16/2024 7:46 PM CDT [facility] Comment:EQUAL TO OR GREATER THAN U PH 6.0 5.0 - 8.0 08/16/2024 7:46 PM CDT [facility] LEUKOCYTES (U) NEGATIVE NEGATIVE 08/16/2024 7:46 PM CDT [facility] NITRITES NEGATIVE NEGATIVE 08/16/2024 7:46 PM CDT [facility] PROTEIN RANDOM (U) NEGATIVE NEGATIVE 08/16/2024 7:46 PM CDT [facility] GLUCOSE (U) NEGATIVE NEGATIVE 08/16/2024 7:46 PM CDT [facility] KETONES MG/DL (U) NEGATIVE NEGATIVE 08/16/2024 7:46 PM CDT [facility] UROBILINOGEN 0.2 <1.0 EU/DL 08/16/2024 7:46 PM CDT [facility] BILIRUBIN (U) NEGATIVE NEGATIVE 08/16/2024 7:46 PM CDT [facility] BLOOD (U) TRACE(A) NEGATIVE 08/16/2024 7:46 PM CDT [facility] WBC/HPF 0-5 0 - 5 /HPF 08/16/2024 7:46 PM CDT [facility] RBC/HPF 0-5 0 - 5 /HPF 08/16/2024 7:46 PM CDT [facility] EPI/LPF 0-5 /LPF 08/16/2024 7:46 PM CDT [facility] BACTERIA (U) 2+ /HPF 08/16/2024 7:46 PM CDT [facility] OTHER CASTS (U) HYALINE /LPF 7:46 PM CDT [facility] Comment:0-5 URINE SPECIMEN OBTAINED BY CLEAN CATCH PROCEDURE / Unknown 08/16/2024 7:25 PM CDT us Tony Cook DO URINE ORDERABLES Latayna jennifer Result [facility] [address] [employer] [place] [address], * (ABNORMAL) COMPREHENSIVE METABOLIC PANEL (08/16/2024 7:14 PM CDT) SODIUM S/P/B 138 136 - 145 MMOL/L 08/16/2024 7:48 PM CDT [facility] POTASSIUM S/P/B 3.5 3.5 - 5.1 MMOL/L 08/16/2024 7:48 PM CDT [facility] Comment:MILD HEMOLYSIS, RESU LT MAY BE AFFECTED. CHLORIDE S/P/B 99 98 - 107 MMOL/L 08/16/2024 7:48 PM CDT [facility] CO2 28.6 21.0 - 32.0 MMOL/L 08/16/2024 7:48 PM CDT [facility] GLUCOSE 139(H) 70 - 99 MG/DL 08/16/2024 7:48 PM CDT [facility] Comment: FASTING GLUCOSE 100 TO 125 MG/DL IS CONSISTENT WITH IMPAIRED FASTING GLUCOSE. FASTING GLUCOSE >125 MG/DL IS CONSISTENT WITH DIABETES. RANDOM GLUCOSE >200 MG/DL WITH HYPERGLYCEMIC SYMPTOMS IS CONSISTENT WITH DIABETES. PER ADA GUIDELINES BUN 19 6 - 24 MG/DL 08/16/2024 7:48 PM CDT [facility] CREATININE S/P/B 1.36(H) 0.70 - 1.30 MG/DL 08/16/2024 7:48 PM CDT [facility] CALCIUM S/P/B 9.7 8.4 - 10.5 MG/DL 08/16/2024 7:48 PM CDT [facility] BILIRUBIN TOTAL S/P/B 0.8 0.2 - 1.0 MG/DL 08/16/2024 7:48 PM CDT [facility] Comment: THIS ASSAY IS NOT RECOMMENDED FOR PATIENTS UNDERGOING TREATMENT WITH ELTROMBOPAG DUE TO THE POTENTIAL FOR FALSELY ELEVATED RESULTS. ALKALINE PHOSPHATASE S/P/B 44(L) 45 - 115 U/L 08/16/2024 7:48 PM T [facility] AST 38(H) 15 - 37 U/L 08/16/2024 7:48 PM CDT [facility] Comment:MILD HEMOLYSIS, RESU LT MAY BE AFFECTED. ALT 31 16 - 63 U/L 08/16/2024 7:48 PM CDT [facility] TOTAL PROTEIN S/P/B 7.8 6.4 - 8.2 G/DL 08/16/2024 7:48 PM T [facility] ALBUMIN S/P/B 3.9 3.4 - 5.0 G/DL 08/16/2024 7:48 PM T [facility] ANION GAP 10.4 5.0 - 15.0 MMOL/L 08/16/2024 7:48 PM T [facility] OSMOLALITY (CALC) 291 MOSM/KG 025 7:48 PM T [facility] Comment:REFERENCE RANGE NOT ESTABLISHED GFR ESTIMATE 57(L) >89 ML/MIN/1. 73 M2 08/16/2024 7:48 PM T [facility] GFR NOTES GFR REFERENCE S: 08/16/2024 7:48 PM T [facility] Comment: THE ESTIMATED GFR IS CALCULATED [...] us Tony Cook DO LABORATORY Final Result [facility] [address] [place] [address], * (ABNORMAL) CBC W/DIFF AUTOMATED (08/16/2024 7:14 PM CDT) WBC 7.17 4.00 - 10.80 x10'3/uL 08/16/2024 7:24 PM CDT [facility] RBC 4.95 4.50 - 6.10 x10'6/uL 08/16/2024 7:24 PM CDT [facility] HGB 16.5 13.0 - 18.0 G/DL 08/16/2024 7:24 PM CDT [facility] HCT 47.1 37.0 - 52.0 % 08/16/2024 7:24 PM CDT [facility] MCV 95.2 78.0 - 100.0 FL 08/16/2024 7:24 PM CDT [facility] MCH 33.3(H) 27.0 - 31.0 PG 08/16/2024 7:24 PM CDT [facility] MCHC 35.0 33.0 - 36.0 G/DL 08/16/2024 7:24 PM CDT [facility] RDW 12.5 11.5 - 14.5 % 08/16/2024 7:24 PM CDT [facility] PLT 245 150 - 350 x10'3/uL 08/16/2024 7:24 PM CDT [facility] MPV 10.7(H) 7.4 - 10.4 FL 08/16/2024 7:24 PM CDT [facility] CBC COMMENT NORMAL REFERENCE RANGE NOT ESTABLISHED FOR THE PROPORTIONAL LEUKOCYTE DIFFERENTIAL. 08/16/2024 7:24 PM CDT [facility] NEUTROPHILS % 70.9 % 08/16/2024 7:24 PM CDT [facility] LYMPHOCYTES % 18.7 % 08/16/2024 7:24 PM CDT [facility] MONOCYTES % 8.5 % 08/16/2024 7:24 PM CDT [facility] EOSINOPHILS % 1.0 % 08/16/2024 7:24 PM CDT [facility] BASOPHILS % 0.6 % 08/16/2024 7:24 PM CDT [facility] IMMATURE GRANS % 0.3 % 08/17/19 7:24 PM CDT [facility] NRBC % 0.0 % 08/16/2024 7:24 PM CDT [facility] ABS. NEUTROPHILS 5.09 1.60 - 8.30 x10'3/uL 08/16/2024 7:24 PM CDT [facility] ABS. LYMPHOCYTES 1.34 0.80 - 4.70 x10'3/uL 08/16/2024 7:24 PM CDT [facility] ABS. MONOCYTES 0.61 0.00 - 1.50 x10'3/uL 08/16/2024 7:24 PM CDT [facility] ABS. EOSINOPHILS 0.07 0.00 - 0.40 x10'3/uL 08/16/2024 7:24 PM CDT [facility] ABS. BASOPHILS 0.04 0.00 - 0.20 x10'3/uL 08/16/2024 7:24 PM CDT [facility] ABS. IMMATURE GRANULOCYTES 0.02 0.00 - 0.03 x10'3/uL 08/16/2024 7:24 PM CDT [facility] ABS. NUCLEATED RBC'S 0.00 0.00 - 0.01 x10'3/uL 08/16/2024 7:24 PM CDT [facility] 08/16/2024 7:14 PM CDT Tony Cook DO LABORATORY Final Result [facility] [address] [place] [address], * (ABNORMAL) HEMOGLOBIN, GLYCOSYLATED (10/06/2017 7:29 AM CDT) HGB A1C 6.1(H) 4.5 - 6.0 % 10/06/2017 8:55 AM CDT [facility] ESTIMATED AVG GLUCOSE 128 MG/DL 10/06/2017 8:55 AM CDT [facility] 10/06/2017 7:29 AM CDT Bart Escobedo MD LABORATORY Final Result [facility] [address] [place] [address], [place] [phone] [id number] * LIPID PANEL (OUTSIDE LAB) (05/15/2017) CHOLESTEROL 202 TRIGLYCERIDES 238 HDL 39 LDL (CALCULATED) 115 VLDL CALCULATION 48 CHOL/HDL RATIO 5.2 05/15/2017 us Doc [facility] LAB-OUTSIDE/ABSTRACTED Final Result from Last 3 Months or Most Recently Relevant to Health Maintenance Insurance [employer] Advance Directives Documents on File Type Date Recorded Patient Development Team Lead Expl anation Guardianship - Permanent 10/05/2017 12:00 AM PHYSICIAN CERTIFICATION STATEMENT * Full Code (Latest Code Status on File) Date Activated Date Inactivated Comments 10/05/2017 10:27 PM 10/06/2017 5:19 PM Care Teams Boiler House Inspector Relationship Specialty Start Date End Date Mamie Galeano MD [address] [facility] [place] [address] PCP - General FAMILY PRACTICE 06/04/17 Buffy Menon APRN, EMAIL ENGINEER-C [address] [facility] [address] [place] [address] [place] Processing Tech CARDIOVASCULAR DISEASE 06/04/17
--- OUTSIDE RECORDS SUMMARY | 2024-08-23 16:07 | XMS_ITS | Clinical Summary ---
Author Organization [facility] Address [address] [place] [phone] Care Team Providers Care Supervisor Quality Control Name Role Phone Mamie Galeano MD Primary [...] T PO D 1 8 Active OMEGA 9-[id number]-[id number]-FISH OIL ORAL Take 2,400 capsules by mouth ventilating expert before breakfast Active rosuvastatin (CRESTOR) 40 mg [...] Department Care Team Description 08/04/2024 Orders Only [facility] Endocrinology Metabolism and Lipid [address] [facility] 13th [place] [address] [place] [address] DO Hypercalcemia (Primary Dx) 07/26/2024 Results Follow-Up [facility] Endocrinology Metabolism and Lipid [address] [facility] [address] [place] [address] DO 06/04/2024 Orders Only [facility] Endocrinology Metabolism and Lipid [address] [facility] Medicine 13th [place] [address] [place] [address] DO Hypercalciuria (Primary Dx) from Last 3 Months Surgical History Surgery Date Site/Laterality Comments ANGIO SELECTIVE [facility] DIGGER RIGHT 11/21/2017 Right TOTAL HIP ARTHROPLASTY Left [...] on file Legal Sex Male 11:32 AM INDUSTRIAL HYGIENE ENGINEER Gender Identity Male 10/16/2017 12:37 PM CDT Sexual Orientation Straight 09/05/2021 9: 03 AM CDT Obstetrics History Last Filed Vital Signs Vital Sign Reading Time Taken Comments Blood Pressure 138/85 05/14/2024 8:56 AM INDUSTRIAL HYGIENE ENGINEER Pulse 70 05/14/2024 8:56 AM INDUSTRIAL HYGIENE ENGINEER Temperature 36.4 C (97.6 F) 05/14/2024 8:56 AM INDUSTRIAL HYGIENE ENGINEER Respiratory Rate 15 11/21/2017 11:0 0 AM CDT Oxygen Saturation 97% 05/14/2024 8:56 AM INDUSTRIAL HYGIENE ENGINEER Inhaled Oxygen Concentration - - Weight 115.3 kg (254 lb 1.6 oz) 05/14/2024 8:56 AM INDUSTRIAL HYGIENE ENGINEER Height 182.9 cm (6') 05/14/2024 8:56 AM INDUSTRIAL HYGIENE ENGINEER Body Mass Index 34.46 05/14/2024 8:56 AM INDUSTRIAL HYGIENE ENGINEER Plan of Treatment Health Maintenance Due Date [...] URINE, 24 HOUR Routine 05/27/2024 8:34 AM INDUSTRIAL HYGIENE ENGINEER Hypercalcemia POCT HEMOGLOBIN A1C Routine 05/14/2024 9 :08 AM INDUSTRIAL HYGIENE ENGINEER Type 2 diabetes mellitus without complication, without long-term current use of insulin (HCC) COMPREHENSIVE METABOLIC PANEL Routine 04/21/2024 8:47 AM INDUSTRIAL HYGIENE ENGINEER Type 2 diabetes mellitus without complication, without long-term current use of insulin (HCC) LIPID PANEL Routine 04/21/2024 8:47 AM INDUSTRIAL HYGIENE ENGINEER Type 2 diabetes mellitus without complication, without long-term current use of insulin (HCC) ALBUMIN CREATININE RATIO, URINE Routine 04/21/2024 8:47 AM INDUSTRIAL HYGIENE ENGINEER Type 2 diabetes mellitus without complication, without [...] ORDERABLES Fi nal Result Performing Organization Address [facility] de Phone Number [facility] [address] [place] [address] * (ABNORMAL) Sodium, urine, 24 hour (07/15/2024 [...] ORDERABLES Fi nal Result Performing Organization Address [facility] de Phone Number [facility] [address] [place] [address] * (ABNORMAL) Calcium, urine, 24 hour (05/27/2024 8:34 AM INDUSTRIAL HYGIENE ENGINEER) Calcium, 24 hour ur 377(H) mg/24 h [facility] Comment: Reference Range 55-300 Low calcium diet 55-200 URINE VOLUME: 2600/24 Urine 05/27/2024 8:34 AM INDUSTRIAL HYGIENE ENGINEER 05/27/2024 6:33 PM INDUSTRIAL HYGIENE ENGINEER Whitney Ambreenluc Lane DO LAB URINE ORDERABLES Fi nal Result Performing Organization Address [facility] Co de Phone Number [facility] [address] [place] [address] * POCT hemoglobin A1c (05/14/2024 9:08 AM INDUSTRIAL HYGIENE ENGINEER) Hemoglobin A1C, POC 6.7 4.0 - 5.6 % Blood 05/14/2024 9:08 AM INDUSTRIAL HYGIENE ENGINEER Mary Mccloud NP POINT OF CARE TEST ORDERAB LES Final Result * Albumin Creatinine Ratio, Urine (04/21/2024 8:47 AM INDUSTRIAL HYGIENE ENGINEER) Creatinine, ur 61 20 - 320 mg/dL [...] a diagnostic category. Urine 04/21/2024 8:47 AM INDUSTRIAL HYGIENE ENGINEER 04/21/2024 8:48 AM INDUSTRIAL HYGIENE ENGINEER Narrative [facility] - 04/22/2024 8:58 AM INDUSTRIAL HYGIENE ENGINEER FASTING:YES FASTING: YES Whitney Lane DO LAB URINE ORDERABLES Fi nal Result Performing Organization Address [facility] Co de Phone Number [facility] [address] [place] [address] * (ABNORMAL) Lipid panel (04/21/2024 8:47 AM INDUSTRIAL HYGIENE ENGINEER) Cholesterol 160 <200 mg/dL [facility] [...] LDL-C. Sharad TANNER et al. JAMI. 2013;310(19): 4255-8473 (http://education.[employer]/faq/QDT718) Chol/HDL ratio 3.8 <5.0 (calc) [facility] Non-HDL, (LDL+VLDL) 118 <130 mg/dL (calc) [facility] Comment: For patients with diabetes plus 1 major ASCVD risk factor, treating to a non-HDL-C goal of <100 mg/dL (LDL-C of <70 mg/dL) is considered a therapeutic option. Blood 04/21/2024 8:47 AM INDUSTRIAL HYGIENE ENGINEER 04/21/2024 8:48 AM INDUSTRIAL HYGIENE ENGINEER Narrative [facility] - 04/22/2024 8:58 AM INDUSTRIAL HYGIENE ENGINEER FASTING:YES FASTING: YES us Whitney Lane DO LAB BLOOD ORDERABLES Fi nal Result [facility] [address] [place] [address] * (ABNORMAL) Comprehensive metabolic panel (04/21/2024 8:47 AM INDUSTRIAL HYGIENE ENGINEER) Pathologist [facility] Glucose 139(H) 65 - 99 mg/dL [facility] [...] [facility] Blood 04/21/2024 8:47 AM INDUSTRIAL HYGIENE ENGINEER 04/21/2024 8:48 AM INDUSTRIAL HYGIENE ENGINEER Narrative [facility] - 04/22/2024 8:58 AM INDUSTRIAL HYGIENE ENGINEER FASTING:YES FASTING: YES us Whitney Lane DO LAB BLOOD ORDERABLES Fi nal Result [facility] [address] [address] * Hepatitis C antibody (11/08/2021 8:29 AM CDT) Hep C Ab NON-REACTI VE NON-REACT SMITHA [facility] SIGNAL TO CUT-OFF 0.00 <1.00 [facility] Comment: HCV antibody was non-reactive. There is no laboratory evidence of HCV infection. In most cases, no further action is required. However, if recent HCV exposure is suspected, a test for HCV RNA (test code 60870) is suggested. For additional information please refer to http://education.[employer]/faq/YCL66c2 (This link is being provided for informational/ educational purposes only.) Blood specimen (specimen) 11/08/2021 8:29 AM CDT 11/08/2021 8:29 AM CDT Narrative [facility] - 11/12/2021 10:45 PM CDT FASTING:YES FASTING: YES Whitney Lane DO LAB MICROBIOLOGY - GENE RAL ORDERABLES Final Result [facility] [address] [facility] [place] [address] from Last 3 Months or Most Recently Relevant to Health Maintenance Insurance [employer] [facility] AETNA MEDICARE [employer] [facility] Advance Directives For more information, please contact: [phone] * Full Code (Latest Code Status on File) Date Activated Date Inactivated Comments 11/21/2017 11:17 AM 11/26/2017 1:19 PM Care Teams Supervisor Quality Control Relationship Specialty Start Date End Date Mamie Galeano MD [address] [place] [address] PCP - General Family Medicine 10/16/17
--- OUTSIDE RECORDS SUMMARY | 2024-08-23 16:07 | XMS_ITS | Encounter Summary ---
Author Organization [facility] Address [address] [place] [address] Care Team Providers Care Filament Wound Parts Fabricator Name Role Phone Mamie Galeano MD Primary Care Provider [phone] Buffy Menon APRN, MANAGEMENT AIDE-C Unavailable [phone] Encounter Details Date Type Department Care Team (Late st Contact Info) Description 09/28/2018 Abstract [facility]FL CONVERSION [address] [place] [address] , Generic Conversion, Social History Tobacco Use Types Packs/Day Years Used Date Smoking Tobacco: Never Smokeless Tobacco: Never Alcohol Use Standard Drinks/Week Comments Yes 1.7 (1 standard drink = 0.6 oz p ure alcohol) occasionally Sex and Gender Information Value Date Recorded Sex Assigned at Male 08/16/2024 6:37 PM CDT Legal Sex Male 1:10 PM ACTIVITIES COUNSELOR Gender Identity Not on file Sexual Orientation Not on file documented as of this encounter Plan of Treatment Not on file documented as of this encounter Visit Diagnoses Not on filedocumented in this encounter Care Teams Filament Wound Parts Fabricator Relationship Specialty Start Date End Date Mamie Galeano MD [address] [place] [phone] PCP - General FAMILY PRACTICE 06/04/17 Buffy Menon APRN, MANAGEMENT AIDE-C [address] [facility] [address] [place] [id number] [place] Fireworks Inspector CARDIOVASCULAR DISEASE 06/04/17 documented as of this encounter
--- OUTSIDE RECORDS SUMMARY | 2024-08-23 16:07 | XMS_ITS | Referral Summary ---
Author Organization [facility] Address [address] [place] [address] Care Team Providers Care Quality Control Microbiologist Name Role Phone Mamie Galeano MD Primary Care Provider [phone] Encounters Date Type Department Care Team Description 08/04/2024 Orders Only [facility] Endocrinology Metabolism and Lipid [address] [facility] 13th [place] [address] [place] [address] DO Hypercalcemia (Primary Dx) 07/26/2024 Results Follow-Up [facility] Endocrinology Metabolism and Lipid [address] [place] [address] DO 06/04/2024 Orders Only [facility] Endocrinology Metabolism and Lipid [address] [facility] 13th [place] [address] [place] [address] DO Hypercalciuria (Primary Dx) from [...] T PO D 1 8 Active OMEGA 5-BGO-XPT-FISH OIL ORAL Take 2,400 capsules by mouth product marketing consultant before breakfast Active rosuvastatin (CRESTOR) 40 mg [...] on file 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 Gender Identity Male 10/16/2017 12:37 PM CDT Sexual Orientation Straight 09/05/2021 9: 03 AM CDT Last Filed Vital Signs Vital Sign Reading Time Taken Comments Blood Pressure 138/85 05/14/2024 8:56 AM MIXING ROLL OPERATOR Pulse 70 05/14/2024 8:56 AM MIXING ROLL OPERATOR Temperature 36.4 C (97.6 F) 05/14/2024 8:56 AM MIXING ROLL OPERATOR Respiratory Rate 15 11/21/2017 11:0 0 AM CDT Oxygen Saturation 97% 05/14/2024 8:56 AM MIXING ROLL OPERATOR Inhaled Oxygen Concentration - - Weight 115.3 kg (254 lb 1.6 oz) 05/14/2024 8:56 AM MIXING ROLL OPERATOR Height 182.9 cm (6') 05/14/2024 8:56 AM MIXING ROLL OPERATOR Body Mass Index 34.46 05/14/2024 8:56 AM MIXING ROLL OPERATOR Plan of Treatment Not on file Procedures Procedure Name Priority Date/Time Associated Diagnosis Comments SODIUM, URINE, 24 HOUR Routine 10:03 AM CDT Hypercalciuria CALCIUM, URINE, 24 HOUR Routine 07/15/2024 10:03 AM CDT Hypercalciuria CALCIUM, URINE, 24 HOUR Routine 05/27/2024 8:34 AM MIXING ROLL OPERATOR Hypercalcemia POCT HEMOGLOBIN A1C Routine 05/14/2024 9 :08 AM MIXING ROLL OPERATOR Type 2 diabetes mellitus without complication, without long-term current use of insulin (HCC) COMPREHENSIVE METABOLIC PANEL Routine 04/21/2024 8:47 AM MIXING ROLL OPERATOR Type 2 diabetes mellitus without complication, without long-term current use of insulin (HCC) LIPID PANEL Routine 04/21/2024 8:47 AM MIXING ROLL OPERATOR Type 2 diabetes mellitus without complication, without long-term current use of insulin ([facility]) ALBUMIN CREATININE RATIO, URINE Routine 04/21/2024 8:47 AM MIXING ROLL OPERATOR Type 2 diabetes mellitus without complication, without [...] ORDERABLES Fi nal Result Performing Organization Address [facility] Co de Phone Number [employer] [address] [place] [address] * (ABNORMAL) Sodium, urine, 24 hour (07/15/2024 [...] ORDERABLES Fi nal Result Performing Organization Address [facility] Co de Phone Number [email or web address] [address] [place] [address] * (ABNORMAL) Calcium, urine, 24 hour (05/27/2024 8:34 AM MIXING ROLL OPERATOR) Calcium, 24 hour ur 377(H) mg/24 h [facility] Comment: Reference Range 55-300 Low calcium diet 55-200 URINE VOLUME: 2600/24 Urine 05/27/2024 8:34 AM MIXING ROLL OPERATOR 05/27/2024 6:33 PM MIXING ROLL OPERATOR Whitney Stevensharme DO LAB URINE ORDERABLES Fi nal Result [facility] [address] [place] [address] * POCT hemoglobin A1c (05/14/2024 9:08 AM MIXING ROLL OPERATOR) Hemoglobin A1C, POC 6.7 4.0 - 5.6 % Blood 05/14/2024 9:08 AM MIXING ROLL OPERATOR Mary Mccloud RN CARDIAC CATH POINT OF CARE TEST ORDERAB LES Final Result * Albumin Creatinine Ratio, Urine (04/21/2024 8:47 AM MIXING ROLL OPERATOR) Creatinine, ur 61 20 - 320 mg/dL [...] a diagnostic category. Urine 04/21/2024 8:47 AM MIXING ROLL OPERATOR 04/21/2024 8:48 AM MIXING ROLL OPERATOR Narrative [facility] - 04/22/2024 8:58 AM MIXING ROLL OPERATOR FASTING:YES FASTING: YES Whitneyfrancois Browne Ariana DO LAB URINE ORDERABLES Fi nal Result [facility] [address] [place] [address] * (ABNORMAL) Lipid panel (04/21/2024 8:47 AM MIXING ROLL OPERATOR) Cholesterol 160 <200 mg/dL [facility] [...] LDL-C. Sharad SS et al. JAMI. 2013;310(19): 4738-5684 (http://education.KuGou/faq/EMD456) Chol/HDL ratio 3.8 <5.0 (calc) [facility] Non-HDL, (LDL+VLDL) 118 <130 mg/dL (calc) [facility] Comment: For patients with diabetes plus 1 major ASCVD risk factor, treating to a non-HDL-C goal of <100 mg/dL (LDL-C of <70 mg/dL) is considered a therapeutic option. Blood 04/21/2024 8:47 AM MIXING ROLL OPERATOR 04/21/2024 8:48 AM MIXING ROLL OPERATOR Narrative [facility] - 04/22/2024 8:58 AM MIXING ROLL OPERATOR FASTING:YES FASTING: YES us Whitney Lane DO LAB BLOOD ORDERABLES Fi nal Result [facility] [address] [place] [address] * (ABNORMAL) Comprehensive metabolic panel (04/21/2024 8:47 AM MIXING ROLL OPERATOR) Glucose 139(H) 65 - 99 mg/dL [facility] [...] [facility] Blood 04/21/2024 8:47 AM MIXING ROLL OPERATOR 04/21/2024 8:48 AM MIXING ROLL OPERATOR Narrative [facility] - 04/22/2024 8:58 AM MIXING ROLL OPERATOR FASTING:YES FASTING: YES us Whitney Lane DO LAB BLOOD ORDERABLES Fi nal Result [facility] [address] [place] [address] * Hepatitis C antibody (11/08/2021 8:29 AM CDT) Hep C Ab NON-REACTI VE NON-REACT SMITHA [facility] SIGNAL TO CUT-OFF 0.00 <1.00 [facility] Comment: HCV antibody was non-reactive. There is no laboratory evidence of HCV infection. In most cases, no further action is required. However, if recent HCV exposure is suspected, a test for HCV RNA (test code 90735) is suggested. For additional information please refer to http://education.PixSpree/faq/ECQ35u9 (This link is being provided for informational/ educational purposes only.) Blood specimen (specimen) 11/08/2021 8:29 AM CDT 11/08/2021 8:29 AM CDT Narrative [facility] - 11/12/2021 10:45 PM CDT FASTING:YES FASTING: YES Whitney Lane DO LAB MICROBIOLOGY - GENE RAL ORDERABLES Final Result [facility] [address] [place] [address] from Last 3 Months or Most Recently Relevant to Health Maintenance Insurance [employer] [facility] AETNA MEDICARE [employer] [facility] Advance Directives For more information, please contact: [phone] * Full Code (Latest Code Status on File) Date Activated Date Inactivated Comments 11/21/2017 11:17 AM 11/26/2017 1:19 PM Care Teams Quality Control Microbiologist Relationship Specialty Start Date End Date Mamie Galeano MD [address] [place] [address] PCP - General Family Medicine 10/16/17
--- OUTSIDE RECORDS SUMMARY | 2024-08-23 16:07 | XMS_ITS | Encounter Summary ---
Author Organization [facility] Address [address] [place] [address] Phone Care Team Providers Care Rug Clipper Name Role Phone Mamie Galeano MD Primary Care Provider [phone] Encounter Details Date Type Department Care Team (Late st Contact Info) Description 07/26/2024 Results Follow-Up [facility] Endocrinology Metabolism and Lipid [address] 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
== END 2024-08-23 09:34 | disposition home or self-care (01) ==
LOC: CHSLAB 09:37
PROVIDERS: Anesthesiology; PCP Family Medicine; Visit Provider Urology
DX: E11.9 Type 2 diabetes mellitus without complications (principal); N20.1 Calculus of ureter; Z79.899 Other long term (current) drug therapy
CPT/HCPCS: 36415; 80048; 87086

== ENCOUNTER 2024-08-25 10:35 | Outpatient (CLI) | payer MEDICARE, SELFPAY ==
--- NOTE | 2024-08-25 10:40 | ECG_ITS ---
Test Date: 2024-08-25 10:57:28 Measurements Intervals [place] Rate: 73 P: 58 RI: 172 QRS: 6 QRSD: 96 T: 44 QT: 391 QTc: 433 Interpretive Statements SINUS RHYTHM NONSPECIFIC T-WAVE ABNORMALITY No previous ECG available for comparison Electronically Signed On 08-25-2024 10:58:31 CDT by Renny Garcia M.D.
--- OUTSIDE RECORDS SUMMARY | 2024-08-25 11:30 | XMS_ITS | Clinical Summary ---
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) 10/05/2017 Hyperlipidemia Hypertension Type II diabetes mellitus ([facility]) Encounters Date Type Department Care Team Description 08/16/2024 6:26 PM CDT - 08/16/2024 9:02 PM CDT Emergency [facility] [address] [place] [address] Tony Cook, DO Back Pain Discharge Disposition: [...] PM CDT Legal Sex Male 1:10 PM MEDICAL DOCTOR Gender Identity Not on file Sexual Orientation [...] 7:48 PM Narrative 08/16/2024 8:37 PM CDT [address] [place] [address] EXAMINATION: CT ABD+PEL KIDNEY STONE DATE: 08/16/2024 [...] Procedure Note Amita Lane MD - 08/16/2024 [place] [id number] [facility] [place] [address] EXAMINATION: CT ABD+PEL KIDNEY STONE DATE: 08/16/2024 [...] L3. Severe neural foraminal narrowing at L5- [id number] but greatest on the left. IMPRESSION: 1. [...] COLOR (U) YELLOW 08/16/2024 7:46 PM CDT [facility] TRANSPARENCY CLEAR 08/16/2024 7:46 PM CDT [facility] SPECIFIC GRAVITY (U) 1.030(H) 1.000 - 1.025 08/16/2024 7:46 PM CDT [facility] Comment:EQUAL TO OR GREATER THAN U PH 6.0 5.0 - 8.0 08/16/2024 7:46 PM CDT [facility] LEUKOCYTES (U) NEGATIVE NEGATIVE 08/16/2024 7:46 PM CDT [facility] NITRITES NEGATIVE NEGATIVE 08/16/2024 7:46 PM CDT [facility] PROTEIN RANDOM (U) NEGATIVE NEGATIVE 08/16/2024 7:46 PM CDT [facility] GLUCOSE (U) NEGATIVE NEGATIVE 08/16/2024 7:46 PM CDT [facility] KETONES MG/DL (U) NEGATIVE NEGATIVE 08/16/2024 7:46 PM CDT [facility] UROBILINOGEN 0.2 <1.0 EU/DL 08/16/2024 7:46 PM CDT [facility] BILIRUBIN (U) NEGATIVE NEGATIVE 08/16/2024 7:46 PM CDT [facility] BLOOD (U) TRACE(A) NEGATIVE 08/16/2024 7:46 PM CDT [facility] WBC/HPF 0-5 0 - 5 /HPF 08/16/2024 7:46 PM CDT [facility] RBC/HPF 0-5 0 - 5 /HPF 08/16/2024 7:46 PM CDT [facility] EPI/LPF 0-5 /LPF 08/16/2024 7:46 PM CDT [facility] BACTERIA (U) 2+ /HPF 08/16/2024 7:46 PM CDT [facility] OTHER CASTS (U) HYALINE /LPF 7:46 PM CDT [facility] Comment:0-5 URINE SPECIMEN OBTAINED BY CLEAN CATCH PROCEDURE / Unknown 08/16/2024 7:25 PM CDT us Tony Cook DO URINE ORDERABLES Latanya jennifer Result [facility] [address] [place] [address], * (ABNORMAL) COMPREHENSIVE METABOLIC PANEL (08/16/2024 7:14 PM CDT) SODIUM S/P/B 138 136 - 145 MMOL/L 08/16/2024 7:48 PM CDT [facility] POTASSIUM S/P/B 3.5 3.5 - 5.1 MMOL/L 08/16/2024 7:48 PM CDT [facility] Comment:MILD HEMOLYSIS, RESU LT MAY BE AFFECTED. CHLORIDE S/P/B 99 98 - 107 MMOL/L 08/16/2024 7:48 PM CDT [facility] CO2 28.6 21.0 - 32.0 MMOL/L 08/16/2024 7:48 PM CDT [facility] GLUCOSE 139(H) 70 - 99 MG/DL 08/16/2024 7:48 PM CDT [facility] Comment: FASTING GLUCOSE 100 TO 125 MG/DL IS CONSISTENT WITH IMPAIRED FASTING GLUCOSE. FASTING GLUCOSE >125 MG/DL IS CONSISTENT WITH DIABETES. RANDOM GLUCOSE >200 MG/DL WITH HYPERGLYCEMIC SYMPTOMS IS CONSISTENT WITH DIABETES. PER ADA GUIDELINES BUN 19 6 - 24 MG/DL 08/16/2024 7:48 PM CDT [facility] CREATININE S/P/B 1.36(H) 0.70 - 1.30 MG/DL 08/16/2024 7:48 PM CDT [facility] CALCIUM S/P/B 9.7 8.4 - 10.5 MG/DL 08/16/2024 7:48 PM CDT [facility] BILIRUBIN TOTAL S/P/B 0.8 0.2 - 1.0 MG/DL 08/16/2024 7:48 PM CDT [facility] Comment: THIS ASSAY IS NOT RECOMMENDED FOR PATIENTS UNDERGOING TREATMENT WITH ELTROMBOPAG DUE TO THE POTENTIAL FOR FALSELY ELEVATED RESULTS. ALKALINE PHOSPHATASE S/P/B 44(L) 45 - 115 U/L 08/16/2024 7:48 PM T [facility] AST 38(H) 15 - 37 U/L 08/16/2024 7:48 PM CDT [facility] Comment:MILD HEMOLYSIS, RESU LT MAY BE AFFECTED. ALT 31 16 - 63 U/L 08/16/2024 7:48 PM CDT [facility] TOTAL PROTEIN S/P/B 7.8 6.4 - 8.2 G/DL 08/16/2024 7:48 PM T [facility] ALBUMIN S/P/B 3.9 3.4 - 5.0 G/DL 08/16/2024 7:48 PM T [facility] ANION GAP 10.4 5.0 - 15.0 MMOL/L 08/16/2024 7:48 PM T [facility] OSMOLALITY (CALC) 291 MOSM/KG 025 7:48 PM T [facility] Comment:REFERENCE RANGE NOT ESTABLISHED GFR ESTIMATE 57(L) >89 ML/MIN/1. 73 M2 08/16/2024 7:48 PM T [facility] GFR NOTES GFR REFERENCE S: 08/16/2024 7:48 PM T [facility] Comment: THE ESTIMATED [...] us Tony Cook DO LABORATORY Final Result [facility] [address] [place] [address], * (ABNORMAL) CBC W/DIFF AUTOMATED (08/16/2024 7:14 PM CDT) WBC 7.17 4.00 - 10.80 x10'3/uL 08/16/2024 7:24 PM CDT [facility] RBC 4.95 4.50 - 6.10 x10'6/uL 08/16/2024 7:24 PM CDT [facility] HGB 16.5 13.0 - 18.0 G/DL 08/16/2024 7:24 PM CDT [facility] HCT 47.1 37.0 - 52.0 % 08/16/2024 7:24 PM CDT [facility] MCV 95.2 78.0 - 100.0 FL 08/16/2024 7:24 PM CDT [facility] MCH 33.3(H) 27.0 - 31.0 PG 08/16/2024 7:24 PM CDT [facility] MCHC 35.0 33.0 - 36.0 G/DL 08/16/2024 7:24 PM CDT [facility] RDW 12.5 11.5 - 14.5 % 08/16/2024 7:24 PM CDT [facility] PLT 245 150 - 350 x10'3/uL 08/16/2024 7:24 PM CDT [facility] MPV 10.7(H) 7.4 - 10.4 FL 08/16/2024 7:24 PM CDT [facility] CBC COMMENT NORMAL REFERENCE RANGE NOT ESTABLISHED FOR THE PROPORTIONAL LEUKOCYTE DIFFERENTIAL. 08/16/2024 7:24 PM CDT [facility] NEUTROPHILS % 70.9 % 08/16/2024 7:24 PM CDT [facility] LYMPHOCYTES % 18.7 % 08/16/2024 7:24 PM CDT [facility] MONOCYTES % 8.5 % 08/16/2024 7:24 PM CDT [facility] EOSINOPHILS % 1.0 % 08/16/2024 7:24 PM CDT [facility] BASOPHILS % 0.6 % 08/16/2024 7:24 PM CDT [facility] IMMATURE GRANS % 0.3 % 08/17/19 7:24 PM CDT [facility] NRBC % 0.0 % 08/16/2024 7:24 PM CDT [facility] ABS. NEUTROPHILS 5.09 1.60 - 8.30 x10'3/uL 08/16/2024 7:24 PM CDT [facility] ABS. LYMPHOCYTES 1.34 0.80 - 4.70 x10'3/uL 08/16/2024 7:24 PM CDT [facility] ABS. MONOCYTES 0.61 0.00 - 1.50 x10'3/uL 08/16/2024 7:24 PM CDT [facility] ABS. EOSINOPHILS 0.07 0.00 - 0.40 x10'3/uL 08/16/2024 7:24 PM CDT [facility] ABS. BASOPHILS 0.04 0.00 - 0.20 x10'3/uL 08/16/2024 7:24 PM CDT [facility] ABS. IMMATURE GRANULOCYTES 0.02 0.00 - 0.03 x10'3/uL 08/16/2024 7:24 PM CDT [facility] ABS. NUCLEATED RBC'S 0.00 0.00 - 0.01 x10'3/uL 08/16/2024 7:24 PM CDT [facility] 08/16/2024 7:14 PM CDT Tony Cook DO LABORATORY Final Result [facility] [address] [place] [address], * (ABNORMAL) HEMOGLOBIN, GLYCOSYLATED (10/06/2017 7:29 AM CDT) HGB A1C 6.1(H) 4.5 - 6.0 % 10/06/2017 8:55 AM CDT [facility] ESTIMATED AVG GLUCOSE 128 MG/DL 10/06/2017 8:55 AM CDT [facility] 10/06/2017 7:29 AM CDT Bart Escobedo MD LABORATORY Final Result [facility] [address] [place] [address], [place] [phone] [id number] * LIPID PANEL (OUTSIDE LAB) (05/15/2017) CHOLESTEROL 202 TRIGLYCERIDES 238 HDL 39 LDL (CALCULATED) 115 VLDL CALCULATION 48 CHOL/HDL RATIO 5.2 05/15/2017 us Doc [facility] LAB-OUTSIDE/ABSTRACTED Final Result from Last 3 Months or Most Recently Relevant to Health Maintenance Insurance [employer] Advance Directives Documents on File Type Date Recorded Patient Furrier Shop Supervisor Expl anation Guardianship - Permanent 10/05/2017 12:00 AM PHYSICIAN CERTIFICATION STATEMENT * Full Code (Latest Code Status on File) Date Activated Date Inactivated Comments 10/05/2017 10:27 PM 10/06/2017 5:19 PM Care Teams Tearoom Hostess Relationship Specialty Start Date End Date Mamie Galeano MD [address] [facility] [place] [address] PCP - General FAMILY PRACTICE 06/04/17 Buffy Menon APRN, WATERFRONT DIRECTOR-C [address] [facility] [address] [place] [address] Sharon Cutting Machine Tender CARDIOVASCULAR DISEASE 06/04/17
--- OUTSIDE RECORDS SUMMARY | 2024-08-25 11:30 | XMS_ITS | Encounter Summary ---
Author Organization [facility] Address [address] [place] [address] Care Team Providers Care Senior Controls Analyst Name Role Phone Mamie Galeano MD Primary Care Provider [phone] Buffy Menon APRN, CAMPAIGN MANAGEMENT SPECIALIST-C Unavailable [phone] Encounter Details Date Type Department Care Team (Late st Contact Info) Description 09/28/2018 Abstract [facility] CONVERSION [address] [place] [address] , Generic Conversion, Social History Tobacco Use Types Packs/Day Years Used Date Smoking Tobacco: Never Smokeless Tobacco: Never Alcohol Use Standard Drinks/Week Comments Yes 1.7 (1 standard drink = 0.6 oz p ure alcohol) occasionally Sex and Gender Information Value Date Recorded Sex Assigned at Male 08/16/2024 6:37 PM CDT 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 Gender Identity Not on file Sexual Orientation Not on file documented as of this encounter Plan of Treatment Not on file documented as of this encounter Visit Diagnoses Not on filedocumented in this encounter Care Teams Senior Controls Analyst Relationship Specialty Start Date End Date Mamie Galeano MD [address] [place] [phone] PCP - General FAMILY PRACTICE 06/04/17 Buffy Menon APRN, CAMPAIGN MANAGEMENT SPECIALIST-C [address] [facility] [address] [place] [id number] Causey Food Or Baggage Handling [place] CARDIOVASCULAR DISEASE 06/04/17 documented as of this encounter
== END 2024-08-25 10:36 | disposition home or self-care (01) ==
LOC: CHSCARD 10:36
PROVIDERS: PCP Family Medicine; Visit Provider Anesthesiology
DX: E78.5 Hyperlipidemia, unspecified (principal); I10 Essential (primary) hypertension
CPT/HCPCS: 93005

== ENCOUNTER 2024-08-26 00:35 | Day surgery (SDC) | payer MEDICARE, SELFPAY ==
[2024-08-22 08:12] VITALS: BMI 33.7
--- NOTE | 2024-08-22 08:23 | PC.NURSE ---
Report to the Outpatient Waiting Room, entrance under the green pavilion located off [facility], at time __0830am on date ___08/26/24____. Planned Procedure Time: ___1030am .? Time changes happen often and if your time is changed the preop area will call you the afternoon before. - You and your visitor will be asked to self-screen and do not enter if you have any COVID symptoms. Please call surgeon if you need to reschedule. - A mask is optional within the hospital at this time. Patients may have clear liquids (water, carbonated beverages, clear teas, apple juice) until 3 hours prior to surgery with a maximum of 20 ounces. - No food from midnight until time of surgery and no smoking, or chewing tobacco (or any form of nicotine). No chewing gum, candy or mints. (0730am) Take only the following medications with a SIP of water on the morning of surgery: Amlodipine, Toprol If needed Hydrocodone for pain DO NOT STOP ANY OF YOUR OTHER PRESCRIPTION MEDICATIONS PRIOR TO SURGERY EXCEPT THE FOLLOWING Hold all vitamins and supplements for [address] Hawkins. Date to take last dose is 08/21/24 Medications to discontinue per physician ___Baby Aspirin for [address] Hawkins Date to take last dose___08/21/24 Please no make-up, nail persian, hairspray, perfume, deodorant, or body powder the day of surgery.? No jewelry (including any body piercings) or valuables the day of surgery, leave them at home.? Please take a shower or bath the night before, or the morning of, surgery with an antibacterial soap.? Wear comfortable, loose fitting clothing.? - Jewelry must be removed prior to entering the operating room.? Rings and piercings that are not removed may be cut off. - The hospital will not accept responsibility for valuables.? - Please leave all valuables, including medications, at home the day of surgery. If you are going home after surgery, a licensed regional refrigerated cdl truck driver must drive you home.? - NO public transportation without another adult if you receive anesthesia. - We recommend that an adult stay with you for 24 hours following discharge. - We also recommend that you do not drive, make important decision, drink alcoholic beverages, or take any drugs that were not prescribed by your health care provider for at least 24 hours after your discharge time. Follow any additional instructions given to you from your surgeon. Telephone instructions given to ___Patient and asked if any additional questions and then verbalized understanding. Patient advised to call surgeon office or pre surgery nurse liaison [phone] if any additional questions.
[2024-08-26] VITALS (8 sets, daily range): BP systolic 101–124; BP diastolic 62–72; PULSE 66–84; RESP 14–16; TEMP 36.4; O2SAT 92–98; BMI 34.2
--- NOTE | ~2024-08-26 | XR_ITS ---
EXAMINATION: XR retrograde pyelo w/stent LT DATE: 08/26/2024 09:31 INDICATION: Left-sided renal stone TECHNIQUE: 4 fluoroscopic images of the abdomen and pelvis were obtained during procedure performed Johnny rajan. Radiologist was not present for the imaging or procedure. The amount of fluorosc opy time used during this procedure was 0.3 minutes. Total DAP was 0.387 mGym^2. COMPARISON: None. FINDINGS: Images demonstrate cannulation of the left ureter and advancement of a wire into the left renal colle cting system. Subsequent images demonstrate injected contrast left renal collecting system. There is mild left hydronephrosis. Subsequent image demonstrates placement of a left intraureteral stent with loops formed in the left renal pelvis. IMPRESSION: 1. Fluoroscopy utilized during left retrograde pyelogram with left intraureteral stent placement. See procedure note for further detail. Reviewed, dictated and finalized at location A. IMPRESSION: 1. Fluoroscopy utilized during left retrograde pyelogram with left intrauretera l stent placement. See procedure note for further detail.
--- OUTSIDE RECORDS SUMMARY | 2024-08-26 00:37 | XMS_ITS | Clinical Summary ---
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 ([facility]) 10/05/2017 Hyperlipidemia Hypertension Type II diabetes mellitus ([facility]) Encounters Date Type Department Care Team Description 08/16/2024 6:26 PM CDT - 08/16/2024 9:02 PM CDT Emergency [facility] [address] [place] [address] Tony Cook, DO Back Pain Discharge Disposition: [...] PM CDT Legal Sex Male 1:10 PM AIR LIAISON AND SPECIAL STAFF Gender Identity Not on file Sexual Orientation [...] 7:48 PM Narrative 08/16/2024 8:37 PM CDT [address] [place] [address] EXAMINATION: CT ABD+PEL KIDNEY STONE DATE: 08/16/2024 [...] Procedure Note Amita Lane MD - 08/16/2024 [place] [id number] [place] [address] EXAMINATION: CT ABD+PEL KIDNEY STONE DATE: 08/16/2024 [...] L3. Severe neural foraminal narrowing at L5- [id number] but greatest on the left. IMPRESSION: 1. [...] COLOR (U) YELLOW 08/16/2024 7:46 PM CDT [facility] TRANSPARENCY CLEAR 08/16/2024 7:46 PM CDT [facility] SPECIFIC GRAVITY (U) 1.030(H) 1.000 - 1.025 08/16/2024 7:46 PM CDT [facility] Comment:EQUAL TO OR GREATER THAN U PH 6.0 5.0 - 8.0 08/16/2024 7:46 PM CDT [facility] LEUKOCYTES (U) NEGATIVE NEGATIVE 08/16/2024 7:46 PM CDT [facility] NITRITES NEGATIVE NEGATIVE 08/16/2024 7:46 PM CDT [facility] PROTEIN RANDOM (U) NEGATIVE NEGATIVE 08/16/2024 7:46 PM CDT [facility] GLUCOSE (U) NEGATIVE NEGATIVE 08/16/2024 7:46 PM CDT [facility] KETONES MG/DL (U) NEGATIVE NEGATIVE 08/16/2024 7:46 PM CDT [facility] UROBILINOGEN 0.2 <1.0 EU/DL 08/16/2024 7:46 PM CDT [facility] BILIRUBIN (U) NEGATIVE NEGATIVE 08/16/2024 7:46 PM CDT [facility] BLOOD (U) TRACE(A) NEGATIVE 08/16/2024 7:46 PM CDT [facility] WBC/HPF 0-5 0 - 5 /HPF 08/16/2024 7:46 PM CDT [facility] RBC/HPF 0-5 0 - 5 /HPF 08/16/2024 7:46 PM CDT [facility] EPI/LPF 0-5 /LPF 08/16/2024 7:46 PM CDT [facility] BACTERIA (U) 2+ /HPF 08/16/2024 7:46 PM CDT [facility] OTHER CASTS (U) HYALINE /LPF 7:46 PM CDT [facility] Comment:0-5 URINE SPECIMEN OBTAINED BY CLEAN CATCH PROCEDURE / Unknown 08/16/2024 7:25 PM CDT us Tony Cook DO URINE ORDERABLES Latanya jennifer Result [facility] [address] [place] [address], * (ABNORMAL) COMPREHENSIVE METABOLIC PANEL (08/16/2024 7:14 PM CDT) SODIUM S/P/B 138 136 - 145 MMOL/L 08/16/2024 7:48 PM CDT [facility] POTASSIUM S/P/B 3.5 3.5 - 5.1 MMOL/L 08/16/2024 7:48 PM CDT [facility] Comment:MILD HEMOLYSIS, RESU LT MAY BE AFFECTED. CHLORIDE S/P/B 99 98 - 107 MMOL/L 08/16/2024 7:48 PM CDT [facility] CO2 28.6 21.0 - 32.0 MMOL/L 08/16/2024 7:48 PM CDT [facility] GLUCOSE 139(H) 70 - 99 MG/DL 08/16/2024 7:48 PM CDT [facility] Comment: FASTING GLUCOSE 100 TO 125 MG/DL IS CONSISTENT WITH IMPAIRED FASTING GLUCOSE. FASTING GLUCOSE >125 MG/DL IS CONSISTENT WITH DIABETES. RANDOM GLUCOSE >200 MG/DL WITH HYPERGLYCEMIC SYMPTOMS IS CONSISTENT WITH DIABETES. PER ADA GUIDELINES BUN 19 6 - 24 MG/DL 08/16/2024 7:48 PM CDT [facility] CREATININE S/P/B 1.36(H) 0.70 - 1.30 MG/DL 08/16/2024 7:48 PM CDT [facility] CALCIUM S/P/B 9.7 8.4 - 10.5 MG/DL 08/16/2024 7:48 PM CDT [facility] BILIRUBIN TOTAL S/P/B 0.8 0.2 - 1.0 MG/DL 08/16/2024 7:48 PM CDT [facility] Comment: THIS ASSAY IS NOT RECOMMENDED FOR PATIENTS UNDERGOING TREATMENT WITH ELTROMBOPAG DUE TO THE POTENTIAL FOR FALSELY ELEVATED RESULTS. ALKALINE PHOSPHATASE S/P/B 44(L) 45 - 115 U/L 08/16/2024 7:48 PM T [facility] AST 38(H) 15 - 37 U/L 08/16/2024 7:48 PM CDT [facility] Comment:MILD HEMOLYSIS, RESU LT MAY BE AFFECTED. ALT 31 16 - 63 U/L 08/16/2024 7:48 PM CDT [facility] TOTAL PROTEIN S/P/B 7.8 6.4 - 8.2 G/DL 08/16/2024 7:48 PM T [facility] ALBUMIN S/P/B 3.9 3.4 - 5.0 G/DL 08/16/2024 7:48 PM T [facility] ANION GAP 10.4 5.0 - 15.0 MMOL/L 08/16/2024 7:48 PM T [facility] OSMOLALITY (CALC) 291 MOSM/KG 025 7:48 PM T [facility] Comment:REFERENCE RANGE NOT ESTABLISHED GFR ESTIMATE 57(L) >89 ML/MIN/1. 73 M2 08/16/2024 7:48 PM T [facility] GFR NOTES GFR REFERENCE S: 08/16/2024 7:48 PM T [facility] Comment: THE ESTIMATED GFR IS CALCULATED [...] us Tony Cook DO LABORATORY Final Result [facility] [address] [place] [address], * (ABNORMAL) CBC W/DIFF AUTOMATED (08/16/2024 7:14 PM CDT) WBC 7.17 4.00 - 10.80 x10'3/uL 08/16/2024 7:24 PM CDT [facility] RBC 4.95 4.50 - 6.10 x10'6/uL 08/16/2024 7:24 PM CDT [facility] HGB 16.5 13.0 - 18.0 G/DL 08/16/2024 7:24 PM CDT [facility] HCT 47.1 37.0 - 52.0 % 08/16/2024 7:24 PM CDT [facility] MCV 95.2 78.0 - 100.0 FL 08/16/2024 7:24 PM CDT [facility] MCH 33.3(H) 27.0 - 31.0 PG 08/16/2024 7:24 PM CDT [facility] MCHC 35.0 33.0 - 36.0 G/DL 08/16/2024 7:24 PM CDT [facility] RDW 12.5 11.5 - 14.5 % 08/16/2024 7:24 PM CDT [facility] PLT 245 150 - 350 x10'3/uL 08/16/2024 7:24 PM CDT [facility] MPV 10.7(H) 7.4 - 10.4 FL 08/16/2024 7:24 PM CDT [facility] CBC COMMENT NORMAL REFERENCE RANGE NOT ESTABLISHED FOR THE PROPORTIONAL LEUKOCYTE DIFFERENTIAL. 08/16/2024 7:24 PM CDT [facility] NEUTROPHILS % 70.9 % 08/16/2024 7:24 PM CDT [facility] LYMPHOCYTES % 18.7 % 08/16/2024 7:24 PM CDT [facility] MONOCYTES % 8.5 % 08/16/2024 7:24 PM CDT [facility] EOSINOPHILS % 1.0 % 08/16/2024 7:24 PM CDT [facility] BASOPHILS % 0.6 % 08/16/2024 7:24 PM CDT [facility] IMMATURE GRANS % 0.3 % 08/17/19 7:24 PM CDT [facility] NRBC % 0.0 % 08/16/2024 7:24 PM CDT [facility] ABS. NEUTROPHILS 5.09 1.60 - 8.30 x10'3/uL 08/16/2024 7:24 PM CDT [facility] ABS. LYMPHOCYTES 1.34 0.80 - 4.70 x10'3/uL 08/16/2024 7:24 PM CDT [facility] ABS. MONOCYTES 0.61 0.00 - 1.50 x10'3/uL 08/16/2024 7:24 PM CDT [facility] ABS. EOSINOPHILS 0.07 0.00 - 0.40 x10'3/uL 08/16/2024 7:24 PM CDT [facility] ABS. BASOPHILS 0.04 0.00 - 0.20 x10'3/uL 08/16/2024 7:24 PM CDT [facility] ABS. IMMATURE GRANULOCYTES 0.02 0.00 - 0.03 x10'3/uL 08/16/2024 7:24 PM CDT [facility] ABS. NUCLEATED RBC'S 0.00 0.00 - 0.01 x10'3/uL 08/16/2024 7:24 PM CDT [facility] 08/16/2024 7:14 PM CDT Tony Cook DO LABORATORY Final Result [facility] [address] [place] [address], * (ABNORMAL) HEMOGLOBIN, GLYCOSYLATED (10/06/2017 7:29 AM CDT) HGB A1C 6.1(H) 4.5 - 6.0 % 10/06/2017 8:55 AM CDT [facility] ESTIMATED AVG GLUCOSE 128 MG/DL 10/06/2017 8:55 AM CDT [facility] 10/06/2017 7:29 AM CDT Bart Escobedo MD LABORATORY Final Result [facility] [address] [place] [address], [place] [phone] [id number] * LIPID PANEL (OUTSIDE LAB) (05/15/2017) CHOLESTEROL 202 TRIGLYCERIDES 238 HDL 39 LDL (CALCULATED) 115 VLDL CALCULATION 48 CHOL/HDL RATIO 5.2 05/15/2017 us Doc [facility] LAB-OUTSIDE/ABSTRACTED Final Result from Last 3 Months or Most Recently Relevant to Health Maintenance Insurance [employer] Advance Directives Documents on File Type Date Recorded Patient Dietary Clerk Expl anation Guardianship - Permanent 10/05/2017 12:00 AM PHYSICIAN CERTIFICATION STATEMENT * Full Code (Latest Code Status on File) Date Activated Date Inactivated Comments 10/05/2017 10:27 PM 10/06/2017 5:19 PM Care Teams Washer Engineer Relationship Specialty Start Date End Date Mamie Galeano MD [address] [facility] [place] [address] PCP - General FAMILY PRACTICE 06/04/17 Buffy Menon APRN, CALCINE FURNACE TENDER-C [address] [place] [address] [place] Project Manager Senior CARDIOVASCULAR DISEASE 06/04/17
--- OUTSIDE RECORDS SUMMARY | 2024-08-26 00:37 | XMS_ITS | Encounter Summary ---
Author Organization [facility] Address [address] [place] [address] Phone Care Team Providers Care Embossing Toolsetter Name Role Phone Mamie Galeano MD Primary Care Provider [phone] Encounter Details Date Type Department Care Team (Late st Contact Info) Description 07/26/2024 Results Follow-Up [facility] Endocrinology Metabolism and Lipid [address] [facility] [address] [place] [address] DO [address] [place], [place] [id number] Social History Tobacco Use Types Packs/Day Years [...] on file Legal Sex Male 11:32 AM PHOTO FINISHER Gender Identity Male 10/16/2017 12:37 PM CDT Sexual Orientation Straight 09/05/2021 9: 03 AM CDT documented as of this encounter Plan of Treatment Not on file documented as of this encounter Visit Diagnoses Not on filedocumented in this encounter Care Teams Embossing Toolsetter Relationship Specialty Start Date End Date Mamie Galeano MD [address] [place] [address] PCP - General Family Medicine 10/16/17 documented as of this encounter
--- OUTSIDE RECORDS SUMMARY | 2024-08-26 00:37 | XMS_ITS | Encounter Summary ---
Author Organization [facility] Address [address] [place] [address] Care Team Providers Care Shelf Drier Operator Name Role Phone Mamie Galeano MD Primary Care Provider [phone] Buffy Menon APRN, ASSISTANT INVENTORY MANAGER-C Unavailable [phone] Encounter Details Date Type Department Care Team (Late st Contact Info) Description 09/28/2018 Abstract [facility] CONVERSION [address] [place] [address] , Generic Conversion, Social History Tobacco Use Types Packs/Day Years Used Date Smoking Tobacco: Never Smokeless Tobacco: Never Alcohol Use Standard Drinks/Week Comments Yes 1.7 (1 standard drink = 0.6 oz p ure alcohol) occasionally Sex and Gender Information Value Date Recorded Sex Assigned at Male 08/16/2024 6:37 PM CDT Legal Sex Male 1:10 PM LABOR OPERATOR Gender Identity Not on file Sexual Orientation Not on file documented as of this encounter Plan of Treatment Not on file documented as of this encounter Visit Diagnoses Not on filedocumented in this encounter Care Teams Shelf Drier Operator Relationship Specialty Start Date End Date Mamie Galeano MD [address] [place] [phone] PCP - General FAMILY PRACTICE 06/04/17 Buffy Menon APRN, ASSISTANT INVENTORY MANAGER-C [address] [facility] [address] [place] [id number] [place] Signal Officer CARDIOVASCULAR DISEASE 06/04/17 documented as of this encounter
--- OUTSIDE RECORDS SUMMARY | 2024-08-26 00:37 | XMS_ITS | Referral Summary ---
Author Organization [facility] Address [address] [place] [address] Care Team Providers Care Shop Steward Name Role Phone Mamie Galeano MD Primary Care Provider Encounters Date Type Department Care Team Description 08/04/2024 Orders Only [facility] Endocrinology Metabolism and Lipid [address] [facility] [address] 13th [place] [address] [place] [address] DO Hypercalcemia (Primary Dx) 07/26/2024 Results Follow-Up [facility] Endocrinology Metabolism and Lipid [address] [facility] [address] [place] [address] DO 06/04/2024 Orders Only [facility] Endocrinology Metabolism and Lipid [address] [facility] [address] [address] [place] [address] [place] [address] DO Hypercalciuria (Primary Dx) from [...] T PO D 1 8 Active OMEGA 3-[id number]-FISH OIL ORAL Take 2,400 capsules by mouth sales force administrator before breakfast Active rosuvastatin (CRESTOR) 40 mg [...] on file Legal Sex Male 11:32 AM LAUNDRY AIDE Gender Identity Male 10/16/2017 12:37 PM CDT Sexual Orientation Straight 09/05/2021 9: 03 AM CDT Last Filed Vital Signs Vital Sign Reading Time Taken Comments Blood Pressure 138/85 05/14/2024 8:56 AM LAUNDRY AIDE Pulse 70 05/14/2024 8:56 AM LAUNDRY AIDE Temperature 36.4 C (97.6 F) 05/14/2024 8:56 AM LAUNDRY AIDE Respiratory Rate 15 11/21/2017 11:0 0 AM CDT Oxygen Saturation 97% 05/14/2024 8:56 AM LAUNDRY AIDE Inhaled Oxygen Concentration - - Weight 115.3 kg (254 lb 1.6 oz) 05/14/2024 8:56 AM LAUNDRY AIDE Height 182.9 cm (6') 05/14/2024 8:56 AM LAUNDRY AIDE Body Mass Index 34.46 05/14/2024 8:56 AM LAUNDRY AIDE Plan of Treatment Not on file Procedures Procedure Name Priority Date/Time Associated Diagnosis Comments SODIUM, URINE, 24 HOUR Routine 10:03 AM CDT Hypercalciuria CALCIUM, URINE, 24 HOUR Routine 07/15/2024 10:03 AM CDT Hypercalciuria POCT HEMOGLOBIN A1C Routine 05/14/2024 9 :08 AM LAUNDRY AIDE Type 2 diabetes mellitus without complication, without long-term current use of insulin (HCC) COMPREHENSIVE METABOLIC PANEL Routine 04/21/2024 8:47 AM LAUNDRY AIDE Type 2 diabetes mellitus without complication, without long-term current use of insulin (HCC) LIPID PANEL Routine 04/21/2024 8:47 AM LAUNDRY AIDE Type 2 diabetes mellitus without complication, without long-term current use of insulin (HCC) ALBUMIN CREATININE RATIO, URINE Routine 04/21/2024 8:47 AM LAUNDRY AIDE Type 2 diabetes mellitus without complication, without long-term current use of insulin (HCC) HEPATITIS C ANTIBODY Routine 11/08/2021 8:29 AM CDT Abnormal liver function from Last 3 Months or Most Recently Relevant to Health Maintenance Results * (ABNORMAL) Calcium, urine, 24 hour (07/15/2024 10:03 AM CDT) Pathologist [facility] Calcium, 24 hour ur 435(H) mg/24 h [facility] Comment: Reference Range 55-300 Low calcium diet 55-200 URINE VOLUME: 2650/24 Urine 07/15/2024 10:0 3 AM CDT 07/15/2024 3:59 PM CDT Whitney Ambreenluc Ramirezme DO LAB URINE ORDERABLES Fi nal Result Performing Organization Address [facility] Co de Phone Number [facility] [address] [place] [address] * (ABNORMAL) Sodium, urine, 24 hour (07/15/2024 10:03 AM CDT) [facility] Sodium/creat ratio 209(H) 30 - 180 mmol/g creat [facility] Sodium, 24 hour ur 299 52 - 380 mmol/24 h [facility] Creatinine, 24 hour ur 1.43 0.50 - 2.15 g/24 h [facility] Urine 07/15/2024 10:0 3 AM CDT 07/15/2024 3:59 PM CDT Whitneyfrancois Browne Ariana DO LAB URINE ORDERABLES Fi nal Result Performing Organization Address [facility] de Phone Number [facility] [address] [place] [address] * POCT hemoglobin A1c (05/14/2024 9:08 AM LAUNDRY AIDE) [facility] Hemoglobin A1C, POC 6.7 4.0 - 5.6 % Blood 05/14/2024 9:08 AM LAUNDRY AIDE Mary Mccloud POINT OF CARE TEST ORDERAB LES Final Result * Albumin Creatinine Ratio, Urine (04/21/2024 8:47 AM LAUNDRY AIDE) Creatinine, ur 61 20 - 320 mg/dL [...] a diagnostic category. Urine 04/21/2024 8:47 AM LAUNDRY AIDE 04/21/2024 8:48 AM LAUNDRY AIDE Narrative [facility] - 04/22/2024 8:58 AM LAUNDRY AIDE FASTING:YES FASTING: YES us Whitney Lane DO LAB URINE ORDERABLES Fi nal Result [facility] [address] [place] [address] * (ABNORMAL) Lipid panel (04/21/2024 8:47 AM LAUNDRY AIDE) Cholesterol 160 <200 mg/dL [facility] [...] LDL-C. Sharad TANNER et al. JAMI. 2013;310(19): 6884-5760 (http://education.RetailNext.Gamervision/faq/BLW750) Chol/HDL ratio 3.8 <5.0 (calc) [facility] Non-HDL, (LDL+VLDL) 118 <130 mg/dL (calc) [facility] Comment: For patients with diabetes plus 1 major ASCVD risk factor, treating to a non-HDL-C goal of <100 mg/dL (LDL-C of <70 mg/dL) is considered a therapeutic option. Blood 04/21/2024 8:47 AM LAUNDRY AIDE 04/21/2024 8:48 AM LAUNDRY AIDE Narrative [facility] - 04/22/2024 8:58 AM LAUNDRY AIDE FASTING:YES FASTING: YES us Whitney Lane DO LAB BLOOD ORDERABLES Fi nal Result [facility] [address] [place] [address] * (ABNORMAL) Comprehensive metabolic panel (04/21/2024 8:47 AM LAUNDRY AIDE) Pathologist [facility] Glucose 139(H) 65 - 99 mg/dL [facility] [...] [facility] Blood 04/21/2024 8:47 AM LAUNDRY AIDE 04/21/2024 8:48 AM LAUNDRY AIDE Narrative [facility] - 04/22/2024 8:58 AM LAUNDRY AIDE FASTING:YES FASTING: YES Whitney Lane DO LAB BLOOD ORDERABLES Fi nal Result [facility] [address] [place] [address] * Hepatitis C antibody (11/08/2021 8:29 AM CDT) Hep C Ab NON-REACTI VE NON-REACT SMITHA [facility] SIGNAL TO CUT-OFF 0.00 <1.00 [facility] Comment: HCV antibody was non-reactive. There is no laboratory evidence of HCV infection. In most cases, no further action is required. However, if recent HCV exposure is suspected, a test for HCV RNA (test code 21400) is suggested. For additional information please refer to http://education.CompBlue.Gamervision/faq/IHN41c5 (This link is being provided for informational/ educational purposes only.) Blood specimen (specimen) 11/08/2021 8:29 AM CDT 11/08/2021 8:29 AM CDT Narrative [facility] - 11/12/2021 10:45 PM CDT FASTING:YES FASTING: YES Whitney Lane DO LAB MICROBIOLOGY - GENE RAL ORDERABLES Final Result [facility] [address] [address] from Last 3 Months or Most Recently Relevant to Health Maintenance Insurance [facility]ATED WITHIN [facility] MEDICARE [id number] [place] [employer] Advance Directives For more information, please contact: [phone] * Full Code (Latest Code Status on File) Date Activated Date Inactivated Comments 11/21/2017 11:17 AM 11/26/2017 1:19 PM Care Teams Shop Steward Relationship Specialty Start Date End Date Mamie Galeano MD [address] [facility] [place] [address] PCP - General Family Medicine 10/16/17
--- OUTSIDE RECORDS SUMMARY | 2024-08-26 00:38 | XMS_ITS | Clinical Summary ---
Author Organization [facility] Address [address] [place] [id number] Care Team Providers Care Gun Club Manager Name Role Phone Mamie Galeano MD Primary [...] T PO D 1 8 Active OMEGA [id number] OIL ORAL Take 2,400 capsules by mouth medical reception before breakfast Active rosuvastatin (CRESTOR) 40 mg [...] Department Care Team Description 08/04/2024 Orders Only [facility] Endocrinology Metabolism and Lipid [address] [facility] Advanced Medicine 13th [place] [address] [place] [address] DO Hypercalcemia (Primary Dx) 07/26/2024 Results Follow-Up [facility] Endocrinology Metabolism and Lipid [address] [facility] 2nd Floor [address] [place] [address] DO 06/04/2024 Orders Only [facility] Endocrinology Metabolism and Lipid [address] [facility] Medicine 13th [place] [address] [place] [address] DO Hypercalciuria (Primary Dx) from Last 3 Months Surgical History Surgery Date Site/Laterality Comments 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 11/21/2017 Right TOTAL HIP ARTHROPLASTY [...] on file Legal Sex Male 11:32 AM WAITSTAFF CAPTAIN Gender Identity Male 10/16/2017 12:37 PM CDT Sexual Orientation Straight 09/05/2021 9: 03 AM CDT Obstetrics History Last Filed Vital Signs Vital Sign Reading Time Taken Comments Blood Pressure 138/85 05/14/2024 8:56 AM WAITSTAFF CAPTAIN Pulse 70 05/14/2024 8:56 AM WAITSTAFF CAPTAIN Temperature 36.4 C (97.6 F) 05/14/2024 8:56 AM WAITSTAFF CAPTAIN Respiratory Rate 15 11/21/2017 11:0 0 AM CDT Oxygen Saturation 97% 05/14/2024 8:56 AM WAITSTAFF CAPTAIN Inhaled Oxygen Concentration - - Weight 115.3 kg (254 lb 1.6 oz) 05/14/2024 8:56 AM WAITSTAFF CAPTAIN Height 182.9 cm (6') 05/14/2024 8:56 AM WAITSTAFF CAPTAIN Body Mass Index 34.46 05/14/2024 8:56 AM WAITSTAFF CAPTAIN Plan of Treatment Health Maintenance Due Date [...] HEMOGLOBIN A1C Routine 05/14/2024 9 :08 AM WAITSTAFF CAPTAIN Type 2 diabetes mellitus without complication, without long-term current use of insulin (HCC) COMPREHENSIVE METABOLIC PANEL Routine 04/21/2024 8:47 AM WAITSTAFF CAPTAIN Type 2 diabetes mellitus without complication, without long-term current use of insulin (HCC) LIPID PANEL Routine 04/21/2024 8:47 AM WAITSTAFF CAPTAIN Type 2 diabetes mellitus without complication, without long-term current use of insulin (HCC) ALBUMIN CREATININE RATIO, URINE Routine 04/21/2024 8:47 AM WAITSTAFF CAPTAIN Type 2 diabetes mellitus without complication, without [...] ORDERABLES Fi nal Result Performing Organization Address [facility]/ZIP Co de Phone Number [facility] [address] [place] [address] * (ABNORMAL) Sodium, urine, 24 hour (07/15/2024 [...] ORDERABLES Fi nal Result Performing Organization Address [facility] de Phone Number [facility] [address] [place] [address] * POCT hemoglobin A1c (05/14/2024 9:08 AM WAITSTAFF CAPTAIN) Hemoglobin A1C, POC 6.7 4.0 - 5.6 % Blood 05/14/2024 9:08 AM WAITSTAFF CAPTAIN Mary Mccloud BOOKING PRIZER POINT OF CARE TEST ORDERAB LES Final Result * Albumin Creatinine Ratio, Urine (04/21/2024 8:47 AM WAITSTAFF CAPTAIN) Creatinine, ur 61 20 - 320 mg/dL [...] a diagnostic category. Urine 04/21/2024 8:47 AM WAITSTAFF CAPTAIN 04/21/2024 8:48 AM WAITSTAFF CAPTAIN Narrative [facility] - 04/22/2024 8:58 AM WAITSTAFF CAPTAIN FASTING:YES FASTING: YES us Whitney Lane DO LAB URINE ORDERABLES Fi nal Result [facility] [address] [place] [address] * (ABNORMAL) Lipid panel (04/21/2024 8:47 AM WAITSTAFF CAPTAIN) Cholesterol 160 <200 mg/dL [facility] [...] factors. LDL-C is now calculated using the Sharad-Shania calculation, which is a validated novel method providing better accuracy than the Friedewald equation in the estimation of LDL-C. Sharad SS et al. JAMI. 2013;310(19): 5013-8312 (http://education.Correlec/faq/YXJ648) Chol/HDL ratio 3.8 <5.0 (calc) [facility] Non-HDL, (LDL+VLDL) 118 <130 mg/dL (calc) [facility] Comment: For patients with diabetes plus 1 major ASCVD risk factor, treating to a non-HDL-C goal of <100 mg/dL (LDL-C of <70 mg/dL) is considered a therapeutic option. Blood 04/21/2024 8:47 AM WAITSTAFF CAPTAIN 04/21/2024 8:48 AM WAITSTAFF CAPTAIN Narrative [facility] - 04/22/2024 8:58 AM WAITSTAFF CAPTAIN FASTING:YES FASTING: YES us Whitney [address] DO LAB BLOOD ORDERABLES Fi nal Result [facility] [address] [address] [facility] [place] [address] * (ABNORMAL) Comprehensive metabolic panel (04/21/2024 8:47 AM WAITSTAFF CAPTAIN) Glucose 139(H) 65 - 99 mg/dL [facility] [...] [facility] Blood 04/21/2024 8:47 AM WAITSTAFF CAPTAIN 04/21/2024 8:48 AM WAITSTAFF CAPTAIN Narrative [facility] - 04/22/2024 8:58 AM WAITSTAFF CAPTAIN FASTING:YES FASTING: YES Whitney Lane DO LAB BLOOD ORDERABLES Fi nal Result Performing Organization Address [facility] Co de Phone Number [facility] [address] [place] [address] * Hepatitis C antibody (11/08/2021 8:29 AM CDT) Hep C Ab NON-REACTI VE NON-REACT SMITHA [facility] SIGNAL TO CUT-OFF 0.00 <1.00 [facility] Comment: HCV antibody was non-reactive. There is no laboratory evidence of HCV infection. In most cases, no further action is required. However, if recent HCV exposure is suspected, a test for HCV RNA (test code 77239) is suggested. For additional information please refer to http://education.Campus Explorer/faq/XBV33d8 (This link is being provided for informational/ educational purposes only.) Blood specimen (specimen) 11/08/2021 8:29 AM CDT 11/08/2021 8:29 AM CDT Narrative [facility] - 11/12/2021 10:45 PM CDT FASTING:YES FASTING: YES Whitney Lane DO LAB MICROBIOLOGY - GENE RAL ORDERABLES Final Result Performing Organization Address [facility]/ZIP Co de Phone Number [facility] [address] [place] [address] from Last 3 Months or Most Recently Relevant to Health Maintenance Insurance [facility] [employer]ET[employer] MEDICARE [facility] Advance Directives For more information, please contact: [phone] * Full Code (Latest Code Status on File) Date Activated Date Inactivated Comments 11/21/2017 11:17 AM 11/26/2017 1:19 PM Care Teams Gun Club Manager Relationship Specialty Start Date End Date Mamie Galeano MD [address] [place] [address] [place] [address] PCP - General Family Medicine 10/16/17
--- NOTE | 2024-08-26 07:21 | WPDHPUPDATE1 ---
History and Physical Update Update Date/Time: 08/26/24 07:21 History and Physical has been reviewed, including an updated exam of the patient. There are NO changes in the patient's condition. Risks, benefits, and alternatives have been discussed and questions answered. Patient agrees to proceed with procedure.
[2024-08-26] MEDS: LACTATED RINGERS 1,000 ML 30 ML IV CONT (07:55)
[2024-08-26 08:05] LABS: Glucose Point of Care 119 mg/dl (65-105)
[2024-08-26] MEDS: ceFAZolin 2 GM/D5W 50 ML 2 GM/50 ML BAG IVPB (08:45)
--- NOTE | 2024-08-26 08:51 | P.PNAN_ITS ---
Anes - Initial Pre Proc Eval Procedure: Operation Date: 08/26/24 09:00 Proposed Procedures p Cystoscopy, Left Ureteroscopy, Possible Left Retrograde Pyelogram, Possible Left Stone Extraction, Possible Left Stent Placement, Possible Holmium Laser - Black Hawkins MD Date/Time: 08/26/24 08:51 Surgeon: Black Hawkins MD Pre Op Diagnosis: left ureteral stone Patient Data Age: 68 Gender: M Height: 1.83 m Weight: 114.5 kg Last Vital Signs Temp 97.6 F 08/26/24 06:55 Pulse 74 08/26/24 06:55 Resp 14 08/26/24 06:55 BP 124/72 08/26/24 06:55 Pulse Ox 97 08/26/24 06:55 O2 Del Method Room Air 08/26/24 06:55 Allergies Allergy/AdvReac Type Severity Reaction Status Date / Time Penicillins Allergy Intermediate Rash Verified 08/26/24 08:41 Home Medications ?Medication ?Instructions ?Recorded ?Confirmed ?Type amlodipine 10 mg tablet 10 mg PO DAILY 08/21/24 08/21/24 History ezetimibe 10 mg tablet 10 mg PO .PM 08/21/24 08/21/24 History fenofibric acid (choline) 135 mg 135 mg PO DAILY 08/21/24 08/21/24 History capsule,delayed release hydrochlorothiazide 25 mg tablet 25 mg PO DAILY 08/21/24 08/21/24 History lisinopril 40 mg tablet 40 mg PO DAILY 08/21/24 08/21/24 History metformin 1,000 mg tablet 1,000 mg PO BID 08/21/24 08/21/24 History metoprolol succinate 100 mg 100 mg PO DAILY 08/21/24 08/21/24 History tablet,extended release 24 hr ondansetron HCl 4 mg tablet 4 mg PO Q8H PRN nausea and vomiting 08/21/24 08/21/24 History rosuvastatin 20 mg tablet 20 mg PO .HS 08/21/24 08/21/24 History semaglutide 2 mg/dose (8 mg/3 mL) 2 mg subcut WEEKLY 08/21/24 08/21/24 History subcutaneous pen injector (Ozempic) tamsulosin 0.4 mg capsule 0.4 mg PO HS 08/21/24 08/21/24 History cholecalciferol (vitamin D3) 325 325 mcg PO DAILY 08/22/24 08/22/24 History mcg (13,000 unit) capsule hydrocodone 5 mg-acetaminophen 325 1 tablet PO Q6-8H PRN pain 08/22/24 08/22/24 History mg tablet magnesium oxide 250 mg PO DAILY 08/22/24 08/22/24 History boxyornxvvrc-fpfqzdod-uxeqfa tablet 1 tablet PO DAILY 08/22/24 08/22/24 History omega 9-zac-vps-fish oil 1,000 mg 1 cap PO DAILY 08/22/24 08/22/24 History (120 mg-180 mg) capsule (Fish Oil) aspirin 81 mg capsule 81 mg PO DAILY 08/26/24 08/26/24 History Laboratory Tests 08/26/24 08:01 POC Capillary Glucose 119 H mg/dl (65-105) Patient hx anesthesia problems: none Family hx anesthesia problems: none Results Review: All pre-operative results and documents have been reviewed as part of the pre- operative evaluation. PMFSH Social History Social History Smoking status: Never smoker Drinks per week: 3 Alcohol use details: weekends only Substance use: never Living arrangements: with family Additional living arrangements comments: Spiritual care concerns: No Anes - Eval Final PreProcedure Day of Procedure 08/26/24 08:51 Patient weight: obese Heart: regular rate and rhythm Lungs: clear to auscultation Airway: Mallampati scale class II Neurological: alert and oriented Last oral intake: >/= 8 hours ASA classification: III Emergent: no Anesthetic plan: proceed Anesthesia type and monitoring: general LMA and standard monitoring Results Review: All pre-operative results and documents have been reviewed as part of the pre- operative evaluation. Informed Consent: The patient's anesthetic plan and its attendant risks and benefits were discussed with the patient/family/POA. Questions were solicited and answers provided to the satisfaction of the patient/family/POA.
[2024-08-26] MEDS: LIDOCAINE 2% GEL UROJET 10 ML PKG MUCOUS MEM (09:09)
--- NOTE | 2024-08-26 09:27 | P.OP_ITS ---
Procedure Note - Detailed Date of Procedure 08/26/24 Pre-op Diagnosis left ureteral stone-7 mm Post-op Diagnosis Same Procedure Performed Cystoscopy, left retrograde, left ureteroscopy with holmium laser, stone extraction, left ureteral stent placement 4.8 Montenegrin contour Surgeon Black Hawkins MD Anesthesia General Description of Procedure Patient was taken to the operative suite correctly identified. Once anesthesia was obtained he was placed in the dorsal lithotomy position and prepped and draped in usual sterile fashion. Twenty-two Montenegrin scope was inserted the bladder in direct vision. There were no urethral strictures. Prostate has some mild lateral lobe hypertrophy. The bladder itself was without any evidence of tumors. Left ureteral orifice was cannulated with a guidewire. I dilated with an 8/10 dilator. Rigid ureteral scope was then inserted into the left ureter. The stone was visualized in the proximal ureter. Using 273 micron fiber we lasered the stone into multiple small pieces. Some of these were retrieved and sent for analysis. Reinspection revealed no significant stone burden. Pyelogram was then performed confirm placement of the stent. 4.8 Montenegrin contour stent was then placed with the proximal end coiled in the renal pelvis and the distal in the bladder. Bladder was drained. 2% viscous lidocaine was inserted into the urethra patient is taken recovery stable condition. He will follow-up in a week for stent removal. This completes dictation. Please send a copy of op note to my office Estimated Blood Loss 0 Drains Yes Packing No Pathology Yes Complications No immediate complications Condition Stable Disposition PACU
[2024-08-26 09:45] LABS: Glucose Point of Care 120 mg/dl (65-105)
== END 2024-08-26 11:14 | disposition home or self-care (01) ==
PROVIDERS: PCP Family Medicine; Visit Provider Urology
PROC: (CPT 52352; principal; 2024-08-26 09:00)
DX: N20.1 Calculus of ureter (principal); I10 Essential (primary) hypertension; E78.5 Hyperlipidemia, unspecified; E11.9 Type 2 diabetes mellitus without complications; N40.0 Benign prostatic hyperplasia without lower urinary tract symptoms; E66.9 Obesity, unspecified; Z68.34 Body mass index [BMI] 34.0-34.9, adult; Z79.891 Long term (current) use of opiate analgesic; Z79.82 Long term (current) use of aspirin; Z79.84 Long term (current) use of oral hypoglycemic drugs; Z79.85 Long-term (current) use of injectable non-insulin antidiabetic drugs; Z79.899 Other long term (current) drug therapy; Z98.890 Other specified postprocedural states; Z80.51 Family history of malignant neoplasm of kidney; Z80.3 Family history of malignant neoplasm of breast; Z80.1 Family history of malignant neoplasm of trachea, bronchus and lung; Z82.49 Family history of ischemic heart disease and other diseases of the circulatory system
CPT/HCPCS: 52356; 74420; 82365; 82948; 88300; C1769; C2617; J0690; J1100; J2250; J2405; J2704; J3010; J7120; Q9966